=== PATIENT | male | born 1955 | race Caucasian/White ===

== ENCOUNTER → 2019-02-28 | Day surgery (SDC) | payer BC ==
[2019-02-27 09:45] LABS: BASOPHILS % 0.3 % (0.0-1.0); EOSINOPHILS # (AUTO) 0.1 (0.0-0.4); EOSINOPHILS % 0.5 % (0.0-6.0); HEMATOCRIT 40.1 % (38.2-49.6); HEMOGLOBIN 13.5 g/dL (14.0-18.0); LYMPHOCYTES # (AUTO) 0.9 (1.0-3.2); LYMPHOCYTES % 9.4 % (18.0-39.1); MEAN CORPUSCULAR HEMOGLOBIN 30.3 pg (28-32); MEAN CORPUSCULAR HGB CONC 33.7 g/dL (31-35); MEAN CORPUSCULAR VOLUME 90.1 fL (81-99); MONOCYTES # (AUTO) 1.1 (0.2-0.8); MONOCYTES % 11.3 % (4.4-11.3); NEUTROPHILS # (AUTO) 7.5 (2.1-6.9); NEUTROPHILS % 75.5 % (38.7-80.0); PLATELET COUNT 112 x10e3/uL (140-360); RED BLOOD COUNT 4.45 x10e6/uL (4.3-5.7); RED CELL DISTRIBUTION WIDTH 16.3 % (11.7-14.4)
[2019-02-27 10:00] LABS: BAND NEUTROPHILS % (MANUAL) 11 %; LYMPHOCYTES % (MANUAL) 15 % (19-48); MONOCYTES % (MANUAL) 9 % (3.4-9.0); NEUTROPHILS % (MANUAL) 65 % (40-74)
[2019-02-27 10:01] LABS: ANION GAP 13.3 mmol/L (8-16); BLOOD UREA NITROGEN 16 mg/dL (7-26); BUN/CREATININE RATIO 19 (6-25); CALCIUM 9.2 mg/dL (8.4-10.2); CARBON DIOXIDE 26 mmol/L (22-29); CHLORIDE 101 mmol/L (98-107); CREATININE, SERUM 0.85 mg/dL (0.72-1.25); EST GLOMERULAR FILTRATION RATE > 60 ML/MIN (60-); GLUCOSE 86 mg/dL (74-118); PLATELET ESTIMATE SLIGHTLY DECREASED; PLATELET MORPHOLOGY COMMENT NORMAL; POTASSIUM 4.3 mmol/L (3.5-5.1); RBC MORPHOLOGY COMMENT NORMAL; SODIUM 136 mmol/L (136-145)
[2019-02-27 10:22] LABS: INR 0.92; PROTHROMBIN TIME 12.8 seconds (11.9-14.5)
[2019-02-27 10:23] LABS: PARTIAL THROMBOPLASTIN TIME 35.2 seconds (23.8-35.5)
[~2019-02-28] MED LIST: ALENDRONATE SOD70 MG PO; BUPIVACAINE 0.25% 30ML SDV INJ ONE; CALCIUM PO; CREON DR 24,001 EACH PO; DECARA25000 UNIT PO; DRONABINOL2.5 MG PO; FENTANYL CITRATE/PF 100MCG/2 ML INJ ONE; HYDROCODON-ACE1 EAC9 PO; IOPAMIDOL 200 MG/ML 20 ML VIAL IT ONE; LEVOTHYROXINE50 MCG PO; LEXAPRO10 MG PO; LIDOCAINE HCL 1% 30ML-PF VIAL ONE; MIDAZOLAM HCL 2 MG/2 ML VIAL ONE; NAC600 MG PO; OMEPRAZOLE40 MG PO; PREDNISONE5 MG PO; PROPOFOL IV EMULSION 10 MG/ML 20 ML VIAL ONE; ROPINIROLE HCL1 MG PO; STRONTIUM PO; [UNRECOGNIZED DRUG - OTHER] SC
--- OUTSIDE RECORDS SUMMARY | 2019-02-28 05:17 | XMS REPORT | Clinical Summary ---
Author Author [facility] Organization [facility] Address Unknown Phone Unavailable Care Team Providers Care Medical Editor Name Role Phone Yamilet Valera MD PCP Allergies Comments Active Allergy Reactions Severity Noted Date Penicillins Rash Low 03/05/2018 Medications End Date Status Medication Sig Dispensed Refills Start Date Active pregabalin (LYRICA) 100 Take 100 mg 0 MG capsule by mouth 2 (two) times a day. Active levothyroxine (SYNTHROID, Take 1 mcg by 0 LEVOXYL) 100 mcg tablet mouth every morning. Active alendronate (FOSAMAX) 70 Take 70 mg by 0 MG tablet mouth every 7 days. NOTE: ON WEDNESDAYS. Take in the morning with a full glass of water on an empty stomach, do NOT take anything else by mouth or lie down for the next 30 min. Active UNABLE TO FIND Take 1 0 capsule by mouth daily. STRONTIUM CITRATE 340 MG CAPSULE (FOR OSTEOPOROSIS) Active omeprazole (PriLOSEC) 40 Take 40 mg by 0 MG capsule mouth daily. Active cholecalciferol, vitamin Take 50,000 0 D3, (DECARA) 50,000 unit Units by capsule mouth every 30 (thirty) days. Every of the month Active FERROUS GLUCONATE ORAL Take 27 mg by 0 mouth every evening. Active rOPINIRole (REQUIP) 1 MG Take 1 mg by 0 tablet mouth nightly. Active albuterol (ACCUNEB) 2.5 Take 2.5 mg 0 mg /3 mL (0.083 %) by nebulizer solution nebulization every 6 (six) hours as needed for wheezing. Active pancrelipase, Take 12,000 0 emmnsz-eyzzyrrm-dtilhqi, units of (CREON) 6,000-19,000 lipase by -30,000 unit mouth 3 capsule,delayed (three) times release(DR/EC) capsule a day with meals. 07/19/2018 Discontinued HYDROcodone-acetaminophen Take 1 tablet 0 (NORCO) 10-325 mg per by mouth 2 tablet (two) times a day. 07/11/2018 Discontinued diazePAM (VALIUM) 10 MG Take 10 mg by 0 tablet mouth nightly. 07/11/2018 Discontinued carbidopa-levodopa Take 1 tablet 0 (SINEMET) 10-100 mg per by mouth tablet daily. 03/05/2018 Discontinued cholecalciferol, vitamin Take 50,000 0 D3, (VITAMIN D3) 1,000 Units by unit tablet mouth every 30 (thirty) days. 05/11/2018 Discontinued omeprazole (PriLOSEC) 40 Take 40 mg by 0 MG capsule mouth every morning. 07/11/2018 Discontinued methocarbamol (ROBAXIN) Take 750 mg 0 750 MG tablet by mouth nightly. 03/15/2018 Discontinued predniSONE (DELTASONE) 1 Take 8 mg by 0 mg tablet mouth every morning. 03/15/2018 Discontinued cycloSPORINE modified Take 75 mg by 0 (NEORAL) 25 MG capsule mouth every morning. 03/15/2018 Discontinued cycloSPORINE modified Take 50 mg by 0 (NEORAL) 25 MG capsule mouth nightly. 05/03/2018 Discontinued acetylcysteine 500 mg Take 500 mg 0 capsule by mouth daily. 03/05/2018 Discontinued calcium carbonate-vitamin Take 1 tablet 0 D3 500 mg-200 unit per by mouth 2 tablet (two) times a day with meals. 07/16/2018 Discontinued Ca/D3/mag Take 1 tablet 0 ox/zinc/gyroscopic engineering technician/jami/bor by mouth (CALCIUM 600-D3 PLUS daily. ORAL) 03/31/2018 predniSONE (DELTASONE) 10 Take 1 tablet 15 tablet 0 03/16/201 mg tablet (10 mg total) 8 by mouth daily for 15 days. 07/11/2018 Discontinued sucralfate (CARAFATE) 1 Take 1 g by 0 gram tablet mouth 4 (four) times a day. 07/19/2018 Discontinued calcium carbonate-vitamin Take by mouth 0 D3 600 mg(1,500mg) -800 every unit tablet evening. 07/11/2018 Discontinued escitalopram (LEXAPRO) 10 Take 10 mg by 0 MG tablet mouth daily. 07/11/2018 Discontinued cholecalciferol, vitamin Take 50,000 0 D3, (DECARA) 50,000 unit Units by capsule mouth daily. 08/11/2018 Discontinued predniSONE (DELTASONE) 10 Take 4 mg by 0 mg tablet mouth daily. 08/20/2018 Discontinued acetylcysteine Take 600 mg 0 (H-MJQEES-F-CYSTEINE by mouth [facility]) every evening. 05/25/2018 dicyclomine (BENTYL) 10 Take 1 56 capsule 0 MG capsule capsule (10 8 mg total) by mouth 4 (four) times a day before meals and nightly for 14 days. 05/18/2018 lactulose 20 gram/30 mL Take 30 mL 1 Bottle 0 solution (20 g total) 8 by mouth 3 (three) times a day as needed (Constipation ) for up to 7 days. 06/10/2018 pancrelipase, Take 2 180 capsule 0 cfqcuw-ibgpcvmb-csxmrvt, capsules by 8 (PANCREAZE) mouth 3 4,200-14,200-24,600 unit (three) times DR capsule a day with meals for 30 days. 06/10/2018 pantoprazole (PROTONIX) Take 1 tablet 30 tablet 0 40 MG EC tablet (40 mg total) 8 by mouth daily for 30 days. 06/10/2018 predniSONE (DELTASONE) 1 Take 8 240 tablet 0 mg tablet tablets (8 mg 8 total) by mouth daily for 30 days. 08/14/2018 enoxaparin (LOVENOX) 80 Inject 0.8 mL 14 Syringe 1 mg/0.8 mL syringe (80 mg total) 8 under the skin every 12 (twelve) hours for 30 days. 08/14/2018 pancrelipase, Take 1 90 capsule 0 jxqayx-fbcdigks-ohilgpj, capsule by 8 (CREON) 6,000-19,000 mouth 3 -30,000 unit (three) times capsule,delayed a day with release(DR/EC) capsule meals for 30 days. 08/14/2018 polyethylene glycol Take 17 g by 20 packet 0 (MIRALAX) 17 gram packet mouth daily 8 as needed for constipation for up to 30 days. 08/11/2018 Discontinued traMADol (ULTRAM) 50 mg Take 1 tablet 10 tablet 0 tablet (50 mg total) 8 by mouth every 6 (six) hours as needed for moderate pain for up to 10 doses. 08/20/2018 Discontinued calcium citrate-vitamin Take 1 tablet 0 D3 (CITRACAL+D) 315-200 by mouth mg-unit per tablet every evening. 08/17/2018 ondansetron ODT Take 1 tablet 21 tablet 0 (ZOFRAN-ODT) 4 MG (4 mg total) 9 disintegrating tablet by mouth every 8 (eight) hours as needed for nausea or vomiting for up to 7 days. 08/20/2018 Discontinued potassium chloride Take 1 30 capsule 0 (MICRO-K) 10 MEQ CR capsule (10 9 capsule mEq total) by mouth daily. 08/20/2018 Discontinued levoFLOXacin (LEVAQUIN) Take 1 tablet 10 tablet 0 500 MG tablet (500 mg 9 total) by mouth daily for 10 days. 08/11/2018 Discontinued furosemide (LASIX) 40 mg Take 1 tablet 60 tablet 0 tablet (40 mg total) 9 by mouth daily. 08/20/2018 Discontinued furosemide (LASIX) 40 mg Take 1 tablet 30 tablet 0 tablet (40 mg total) 9 by mouth daily as needed (As needed for leg swelling /shortness of breath /weight gain). 08/28/2018 Discontinued rivaroxaban (XARELTO) 20 Take 20 mg by 0 mg tablet mouth daily. 08/28/2018 Discontinued acetylcysteine (NAC) 600 Take 600 mg 0 mg capsule by mouth once. 09/28/2018 lisinopril Take 1 tablet 30 tablet 2 (PRINIVIL,ZESTRIL) 5 mg (5 mg total) 9 tablet by mouth daily for 30 days. 09/28/2018 predniSONE (DELTASONE) 20 Take 1 tablet 30 tablet 0 mg tablet (20 mg total) 9 by mouth daily for 30 days. Active Problems Problem Noted Date Melena 08/20/2018 Pancreatitis 07/20/2018 Acute pancreatitis without infection or necrosis 07/19/2018 Overview: Added automatically from request for surgery [id number] Superior mesenteric vein thrombosis 07/10/2018 Pain of upper abdomen 05/03/2018 Acute pancreatitis 03/05/2018 Encounters Care Team Description Date Type Specialty Fern Velázquez MD Cyst and pseudocyst of pancreas 01/22/2019 Hospital Radiology Encounter Vinh King, HOUSE FURNISHINGS SUPERVISOR 08/23/2018 Anesthesia Gastroenterology Event Fern Velázquez MD COLONOSCOPY with polypectomy 08/23/2018 Surgery Gastroenterology Pranav Maldonado MD ESOPHAGOGASTRODUODENOSCOPY (EGD) with biopsies 08/22/2018 Surgery Gastroenterology Vanessa Beltran, HOUSE FURNISHINGS SUPERVISOR 08/22/2018 Anesthesia Gastroenterology Event Sean Poe MD Patel, Bhagwat Purushottam, MD Melena (Primary Dx); Gastrointestinal hemorrhage, unspecified gastrointestinal hemorrhage type; HX: anticoagulation; Superior mesenteric vein thrombosis 08/20/2018 [facility] General Internal Medicine - Encounter 08/28/2018 Tavares Baker MD 08/02/2018 Anesthesia Gastroenterology Event Tereso Lawson MD US UPPER GI TRACT, ENDOSCOPIC 08/02/2018 Surgery Gastroenterology N/A 07/31/2018 Intake Access Tereso Lawson MD ERCP WITH FLUORO 07/26/2018 Surgery Gastroenterology Mikayla Solomon MD 07/26/2018 Anesthesia Gastroenterology Event Curly Marrufo DO Zhao, Xun, MD Patel, Bhagwat Purushottam, MD Acute pancreatitis, unspecified complication status, unspecified pancreatitis type (Primary Dx); Epigastric abdominal pain; RUQ pain; Acute pancreatitis without infection or necrosis, unspecified pancreatitis type 07/19/2018 [facility] General Internal Medicine - Encounter 08/11/2018 Carin Morton MD Patel, Bhagwat Purushottam, MD Superior mesenteric vein thrombosis (Primary Dx); Portal vein thrombosis 07/10/2018 [facility] General Internal Medicine - Encounter 07/16/2018 Yamilet Valera MD Epigastric abdominal pain; H/O acute pancreatitis; Nausea & vomiting 07/10/2018 Hospital Radiology Encounter Fern Velázquez MD Cyst and pseudocyst of pancreas (Primary Dx) 06/05/2018 Transcribe Access Orders Zeenat Lakhani MD Patel, Bhagwat Purushottam, MD Pain of upper abdomen (Primary Dx); Gastritis without bleeding, unspecified chronicity, unspecified gastritis type 05/02/2018 [facility] General Internal Medicine - Encounter 05/11/2018 Yamilet Valera MD Epigastric abdominal pain (Primary Dx); RUQ pain 04/26/2018 Transcribe Access Orders Justice Reynaga MD Patel, Bhagwat Purushottam, MD Acute pancreatitis, unspecified complication status, unspecified pancreatitis type (Primary Dx); Chest pain of uncertain etiology; Dehydration; Unable to eat; Acute hyperkalemia 03/05/2018 [facility] General Internal Medicine - Encounter 03/15/2018 after 02/27/2018 Immunizations Name Dates Previously Given Next Due FLUCELVAX QUAD PF (0.5mL 08/10/2018 syringe) Social History Date Tobacco Use Types Packs/Day Years Used Never Smoker Smokeless Tobacco: Never Used Alcohol Use Drinks/Week oz/Week Comments No Sex Assigned at Date Recorded Not on file Industry Job Start Date Occupation Not on file Not on file Not on file Travel End Travel History Travel Start No recent travel history available. Last Filed Vital Signs Time Taken Vital Sign Reading 08/28/2018 12:29 PM DIRECTOR OF FIELD COORDINATION Blood Pressure 105/59 08/28/2018 12:29 PM DIRECTOR OF FIELD COORDINATION Pulse 63 08/28/2018 12:29 PM DIRECTOR OF FIELD COORDINATION Temperature 35.8 C (96.5 F) 08/28/2018 12:29 PM DIRECTOR OF FIELD COORDINATION Respiratory Rate 16 08/28/2018 12:29 PM DIRECTOR OF FIELD COORDINATION Oxygen Saturation 95% - Inhaled Oxygen - Concentration 08/28/2018 7:36 AM DIRECTOR OF FIELD COORDINATION Weight 78.5 kg (173 lb) 08/20/2018 5:00 PM DIRECTOR OF FIELD COORDINATION Height 167.6 cm (5' 6") 08/20/2018 5:00 PM DIRECTOR OF FIELD COORDINATION Body Mass Index 27.92 Plan of Treatment Health Maintenance Due Date Last Done Comments COLONOSCOPY SCREENING 2006 SHINGLES VACCINES (#1) 2006 INFLUENZA VACCINE 02/21/2019 08/10/2018 Implants Device Identifier Shelf Expiration Date Model / Serial / Lot Implanted Type Area Manufactur er [id number] / / Stent Advanix Pncreatic 7fr 7cm Surgical N/A: N/A [employer] - [id number] Stents [employer] Implanted: 07/26/2018 (Quantity not MAXIMILIANO on file) Procedures Comments Procedure Name Priority Date/Time Associated Diagnosis CT ABDOMEN W WO CONTRAST Routine 01/22/2019 Cyst and pseudocyst of 10:24 AM CDT pancreas ESTIMATED GFR Routine 01/22/2019 9:18 AM CDT CREATININE, WHOLE BLOOD Routine 01/22/2019 9:18 AM CDT ESTIMATED GFR Routine 08/28/2018 4:50 AM DIRECTOR OF FIELD COORDINATION COMPREHENSIVE METABOLIC Routine 08/28/2018 PANEL 4:50 AM DIRECTOR OF FIELD COORDINATION HC COMPLETE BLD COUNT Routine 08/28/2018 W/AUTO DIFF 4:50 AM DIRECTOR OF FIELD COORDINATION CREATININE LEVEL, URINE, Routine 08/27/2018 RANDOM 3:15 PM DIRECTOR OF FIELD COORDINATION PROTEIN, URINE, RANDOM Routine 08/27/2018 3:15 PM DIRECTOR OF FIELD COORDINATION ESTIMATED GFR Routine 08/26/2018 5:08 AM DIRECTOR OF FIELD COORDINATION BASIC METABOLIC PANEL Routine 08/26/2018 5:08 AM DIRECTOR OF FIELD COORDINATION HC COMPLETE BLD COUNT Routine 08/26/2018 W/AUTO DIFF 5:08 AM DIRECTOR OF FIELD COORDINATION ESTIMATED GFR Routine 08/25/2018 6:22 AM DIRECTOR OF FIELD COORDINATION BASIC METABOLIC PANEL Routine 08/25/2018 6:22 AM DIRECTOR OF FIELD COORDINATION HC COMPLETE BLD COUNT Routine 08/25/2018 W/AUTO DIFF 6:22 AM DIRECTOR OF FIELD COORDINATION ESTIMATED GFR Routine 08/24/2018 5:36 AM DIRECTOR OF FIELD COORDINATION BASIC METABOLIC PANEL Routine 08/24/2018 5:36 AM DIRECTOR OF FIELD COORDINATION HC COMPLETE BLD COUNT Routine 08/24/2018 W/AUTO DIFF 5:36 AM DIRECTOR OF FIELD COORDINATION CREATININE LEVEL, URINE, Routine 08/23/2018 RANDOM 3:27 PM DIRECTOR OF FIELD COORDINATION PROTEIN, URINE, RANDOM Routine 08/23/2018 3:27 PM DIRECTOR OF FIELD COORDINATION SURGICAL PATHOLOGY Routine 08/23/2018 REQUEST 11:13 AM DIRECTOR OF FIELD COORDINATION COLONOSCOPY 08/23/2018 Melena 8:48 AM DIRECTOR OF FIELD COORDINATION Special Needs colonoscop y on 08/23/[address] ABDOMEN WWO CONTRAST Routine 08/22/2018 PELVIS W CONTRAST 5:56 PM DIRECTOR OF FIELD COORDINATION CREATININE LEVEL, URINE, Routine 08/22/2018 RANDOM 4:37 PM DIRECTOR OF FIELD COORDINATION PROTEIN, URINE, RANDOM Routine 08/22/2018 4:37 PM DIRECTOR OF FIELD COORDINATION SURGICAL PATHOLOGY Routine 08/22/2018 REQUEST 1:49 PM DIRECTOR OF FIELD COORDINATION ESOPHAGOGASTRODUODENOSCOP 08/22/2018 Melena Y (EGD) 12:30 PM DIRECTOR OF FIELD COORDINATION Special Needs egd on 08/22/18 at 1230 ECG PRE/POST OP Routine 08/22/2018 5:50 AM DIRECTOR OF FIELD COORDINATION ESTIMATED GFR Routine 08/22/2018 4:47 AM DIRECTOR OF FIELD COORDINATION PROTHROMBIN TIME WITH INR Routine 08/22/2018 4:47 AM DIRECTOR OF FIELD COORDINATION COMPREHENSIVE METABOLIC Routine 08/22/2018 PANEL 4:47 AM DIRECTOR OF FIELD COORDINATION HC COMPLETE BLD COUNT Routine 08/22/2018 W/AUTO DIFF 4:47 AM DIRECTOR OF FIELD COORDINATION LIPASE LEVEL Routine 08/22/2018 4:47 AM DIRECTOR OF FIELD COORDINATION HEMOGLOBIN & HEMATOCRIT Timed 08/21/2018 11:55 PM DIRECTOR OF FIELD COORDINATION HEMOGLOBIN & HEMATOCRIT Timed 08/21/2018 7:10 PM DIRECTOR OF FIELD COORDINATION CREATININE LEVEL, URINE, Routine 08/21/2018 RANDOM 7:10 PM DIRECTOR OF FIELD COORDINATION PROTEIN, URINE, RANDOM Routine 08/21/2018 7:10 PM DIRECTOR OF FIELD COORDINATION CLOSTRIDIUM DIFFICILE Routine 08/21/2018 TOXIN 7:10 PM DIRECTOR OF FIELD COORDINATION LIPASE LEVEL Routine 08/21/2018 12:22 PM DIRECTOR OF FIELD COORDINATION HC COMPLETE BLD COUNT Routine 08/21/2018 W/AUTO DIFF 12:22 PM DIRECTOR OF FIELD COORDINATION TRANSFUSE RED BLOOD CELLS Routine 08/21/2018 8:49 AM DIRECTOR OF FIELD COORDINATION ESTIMATED GFR Routine 08/21/2018 4:15 AM DIRECTOR OF FIELD COORDINATION PROTHROMBIN TIME WITH INR Routine 08/21/2018 4:15 AM DIRECTOR OF FIELD COORDINATION COMPREHENSIVE METABOLIC Routine 08/21/2018 PANEL 4:15 AM DIRECTOR OF FIELD COORDINATION TRANSFUSE RED BLOOD CELLS Routine 08/21/2018 3:39 AM DIRECTOR OF FIELD COORDINATION HEMOGLOBIN & HEMATOCRIT Timed 08/20/2018 10:00 PM DIRECTOR OF FIELD COORDINATION LACTIC ACID LEVEL, SEPSIS Timed 08/20/2018 - NOW AND REPEAT 2X EVERY 8:00 PM DIRECTOR OF FIELD COORDINATION 3 HOURS URINALYSIS SCREEN AND Routine 08/20/2018 MICROSCOPY, WITH REFLEX 5:29 PM DIRECTOR OF FIELD COORDINATION TO CULTURE URINE CULTURE Routine 08/20/2018 5:29 PM DIRECTOR OF FIELD COORDINATION HEMOGLOBIN & HEMATOCRIT Timed 08/20/2018 4:30 PM DIRECTOR OF FIELD COORDINATION LACTIC ACID LEVEL, SEPSIS Timed 08/20/2018 - NOW AND REPEAT 2X EVERY 4:30 PM DIRECTOR OF FIELD COORDINATION 3 HOURS DC CRITICAL CARE, E/M Routine 08/20/2018 30-74 MINUTES 1:52 PM DIRECTOR OF FIELD COORDINATION PREPARE RBC Routine 08/20/2018 1:34 PM DIRECTOR OF FIELD COORDINATION ESTIMATED GFR STAT 08/20/2018 1:34 PM DIRECTOR OF FIELD COORDINATION LIPASE LEVEL STAT 08/20/2018 1:34 PM DIRECTOR OF FIELD COORDINATION LACTIC ACID LEVEL, SEPSIS STAT 08/20/2018 - NOW AND REPEAT 2X EVERY 1:34 PM DIRECTOR OF FIELD COORDINATION 3 HOURS COMPREHENSIVE METABOLIC STAT 08/20/2018 PANEL 1:34 PM DIRECTOR OF FIELD COORDINATION TYPE AND SCREEN Routine 08/20/2018 1:34 PM DIRECTOR OF FIELD COORDINATION PARTIAL THROMBOPLASTIN STAT 08/20/2018 TIME (PTT) 1:34 PM DIRECTOR OF FIELD COORDINATION PROTHROMBIN TIME WITH INR STAT 08/20/2018 1:34 PM DIRECTOR OF FIELD COORDINATION HC COMPLETE BLD COUNT STAT 08/20/2018 W/AUTO DIFF 1:34 PM DIRECTOR OF FIELD COORDINATION MANUAL DIFFERENTIAL Routine 08/11/2018 4:50 AM DIRECTOR OF FIELD COORDINATION ESTIMATED GFR Routine 08/11/2018 4:50 AM DIRECTOR OF FIELD COORDINATION BILIRUBIN DIRECT Routine 08/11/2018 4:50 AM DIRECTOR OF FIELD COORDINATION COMPREHENSIVE METABOLIC Routine 08/11/2018 PANEL 4:50 AM DIRECTOR OF FIELD COORDINATION CBC WITH PLATELET AND Routine 08/11/2018 DIFFERENTIAL 4:50 AM DIRECTOR OF FIELD COORDINATION HEPATIC FUNCTION PANEL STAT 08/10/2018 5:49 PM DIRECTOR OF FIELD COORDINATION MANUAL DIFFERENTIAL Routine 08/10/2018 5:10 AM DIRECTOR OF FIELD COORDINATION ESTIMATED GFR Routine 08/10/2018 5:10 AM DIRECTOR OF FIELD COORDINATION HEPATIC FUNCTION PANEL Routine 08/10/2018 5:10 AM DIRECTOR OF FIELD COORDINATION BASIC METABOLIC PANEL Routine 08/10/2018 5:10 AM DIRECTOR OF FIELD COORDINATION CBC WITH PLATELET AND Routine 08/10/2018 DIFFERENTIAL 5:10 AM DIRECTOR OF FIELD COORDINATION MANUAL DIFFERENTIAL Routine 08/09/2018 4:51 AM DIRECTOR OF FIELD COORDINATION ESTIMATED GFR Routine 08/09/2018 4:51 AM DIRECTOR OF FIELD COORDINATION COMPREHENSIVE METABOLIC Routine 08/09/2018 PANEL 4:51 AM DIRECTOR OF FIELD COORDINATION CBC WITH PLATELET AND Routine 08/09/2018 DIFFERENTIAL 4:51 AM DIRECTOR OF FIELD COORDINATION URINALYSIS, AUTOMATED Routine 08/07/2018 WITH MICROSCOPY 3:32 PM DIRECTOR OF FIELD COORDINATION POC GLUCOSE Routine 08/06/2018 4:16 PM DIRECTOR OF FIELD COORDINATION POC GLUCOSE Routine 08/06/2018 12:30 PM DIRECTOR OF FIELD COORDINATION POC GLUCOSE Routine 08/06/2018 8:21 AM DIRECTOR OF FIELD COORDINATION POC GLUCOSE Routine 08/06/2018 4:54 AM DIRECTOR OF FIELD COORDINATION ESTIMATED GFR Routine 08/06/2018 3:30 AM DIRECTOR OF FIELD COORDINATION PHOSPHORUS LEVEL Routine 08/06/2018 3:30 AM DIRECTOR OF FIELD COORDINATION MAGNESIUM LEVEL Routine 08/06/2018 3:30 AM DIRECTOR OF FIELD COORDINATION IONIZED CALCIUM Routine 08/06/2018 3:30 AM DIRECTOR OF FIELD COORDINATION HC COMPLETE BLD COUNT Routine 08/06/2018 W/AUTO DIFF 3:30 AM DIRECTOR OF FIELD COORDINATION COMPREHENSIVE METABOLIC Routine 08/06/2018 PANEL 3:30 AM DIRECTOR OF FIELD COORDINATION CORTISOL LEVEL, AM Routine 08/06/2018 3:30 AM DIRECTOR OF FIELD COORDINATION BLOOD CULTURE, AEROBIC & Routine 08/06/2018 ANAEROBIC 3:30 AM DIRECTOR OF FIELD COORDINATION BLOOD CULTURE, AEROBIC & Routine 08/06/2018 ANAEROBIC 3:30 AM DIRECTOR OF FIELD COORDINATION POC GLUCOSE Routine 08/06/2018 12:54 AM DIRECTOR OF FIELD COORDINATION POC GLUCOSE Routine 08/05/2018 8:55 PM DIRECTOR OF FIELD COORDINATION LACTIC ACID LEVEL STAT 08/05/2018 8:02 PM DIRECTOR OF FIELD COORDINATION POC GLUCOSE Routine 08/05/2018 5:51 PM DIRECTOR OF FIELD COORDINATION ECG 12-LEAD STAT 08/05/2018 5:04 PM DIRECTOR OF FIELD COORDINATION TROPONIN STAT 08/05/2018 4:05 PM DIRECTOR OF FIELD COORDINATION ESTIMATED GFR STAT 08/05/2018 4:05 PM DIRECTOR OF FIELD COORDINATION IONIZED CALCIUM STAT 08/05/2018 4:05 PM DIRECTOR OF FIELD COORDINATION MAGNESIUM LEVEL STAT 08/05/2018 4:05 PM DIRECTOR OF FIELD COORDINATION BASIC METABOLIC PANEL STAT 08/05/2018 4:05 PM DIRECTOR OF FIELD COORDINATION POC GLUCOSE Routine 08/05/2018 1:52 PM DIRECTOR OF FIELD COORDINATION POC GLUCOSE Routine 08/05/2018 9:13 AM DIRECTOR OF FIELD COORDINATION MANUAL DIFFERENTIAL Routine 08/05/2018 3:30 AM DIRECTOR OF FIELD COORDINATION ESTIMATED GFR Routine 08/05/2018 3:30 AM DIRECTOR OF FIELD COORDINATION CBC WITH PLATELET AND Routine 08/05/2018 DIFFERENTIAL 3:30 AM DIRECTOR OF FIELD COORDINATION MAGNESIUM LEVEL Routine 08/05/2018 3:30 AM DIRECTOR OF FIELD COORDINATION IONIZED CALCIUM Routine 08/05/2018 3:30 AM DIRECTOR OF FIELD COORDINATION BASIC METABOLIC PANEL Routine 08/05/2018 3:30 AM DIRECTOR OF FIELD COORDINATION LACTIC ACID LEVEL Routine 08/04/2018 10:47 PM DIRECTOR OF FIELD COORDINATION CT ABDOMEN W WO CONTRAST Routine 08/04/2018 6:56 PM DIRECTOR OF FIELD COORDINATION ESTIMATED GFR Routine 08/04/2018 3:55 PM DIRECTOR OF FIELD COORDINATION COMPREHENSIVE METABOLIC Routine 08/04/2018 PANEL 3:55 PM DIRECTOR OF FIELD COORDINATION IONIZED CALCIUM Routine 08/04/2018 3:55 PM DIRECTOR OF FIELD COORDINATION PHOSPHORUS LEVEL Routine 08/04/2018 3:55 PM DIRECTOR OF FIELD COORDINATION MAGNESIUM LEVEL Routine 08/04/2018 3:55 PM DIRECTOR OF FIELD COORDINATION LACTIC ACID LEVEL Routine 08/04/2018 3:55 PM DIRECTOR OF FIELD COORDINATION HC COMPLETE BLD COUNT Routine 08/04/2018 W/AUTO DIFF 3:55 PM DIRECTOR OF FIELD COORDINATION BLOOD CULTURE, AEROBIC & Routine 08/04/2018 ANAEROBIC 3:55 PM DIRECTOR OF FIELD COORDINATION XR CHEST 1 VW PORTABLE Routine 08/04/2018 3:53 PM DIRECTOR OF FIELD COORDINATION ECG 12-LEAD Routine 08/04/2018 3:40 PM DIRECTOR OF FIELD COORDINATION POC GLUCOSE Routine 08/04/2018 3:31 PM DIRECTOR OF FIELD COORDINATION ESTIMATED GFR Routine 08/04/2018 4:38 AM DIRECTOR OF FIELD COORDINATION BASIC METABOLIC PANEL Routine 08/04/2018 4:38 AM DIRECTOR OF FIELD COORDINATION HC COMPLETE BLD COUNT Routine 08/04/2018 W/AUTO DIFF 4:38 AM DIRECTOR OF FIELD COORDINATION ESTIMATED GFR Routine 08/03/2018 3:55 AM DIRECTOR OF FIELD COORDINATION BASIC METABOLIC PANEL Routine 08/03/2018 3:55 AM DIRECTOR OF FIELD COORDINATION HC COMPLETE BLD COUNT Routine 08/03/2018 W/AUTO DIFF 3:55 AM DIRECTOR OF FIELD COORDINATION RESPIRATORY PATHOGEN Routine 08/02/2018 PANEL 5:50 PM DIRECTOR OF FIELD COORDINATION US UPPER GI TRACT, 08/02/2018 Acute pancreatitis ENDOSCOPIC 2:25 PM DIRECTOR OF FIELD COORDINATION without infection or necrosis, unspecified pancreatitis type ESTIMATED GFR Routine 08/02/2018 6:30 AM DIRECTOR OF FIELD COORDINATION PROTHROMBIN TIME WITH INR Routine 08/02/2018 6:30 AM DIRECTOR OF FIELD COORDINATION COMPREHENSIVE METABOLIC Routine 08/02/2018 PANEL 6:30 AM DIRECTOR OF FIELD COORDINATION HC COMPLETE BLD COUNT Routine 08/02/2018 W/AUTO DIFF 6:30 AM DIRECTOR OF FIELD COORDINATION ESTIMATED GFR Routine 08/01/2018 6:05 AM DIRECTOR OF FIELD COORDINATION MAGNESIUM LEVEL Routine 08/01/2018 6:05 AM DIRECTOR OF FIELD COORDINATION PHOSPHORUS LEVEL Routine 08/01/2018 6:05 AM DIRECTOR OF FIELD COORDINATION COMPREHENSIVE METABOLIC Routine 08/01/2018 PANEL 6:05 AM DIRECTOR OF FIELD COORDINATION XR CHEST 2 VW Routine 07/31/2018 8:13 PM DIRECTOR OF FIELD COORDINATION HC COMPLETE BLD COUNT Routine 07/31/2018 W/AUTO DIFF 6:50 PM DIRECTOR OF FIELD COORDINATION ESTIMATED GFR Routine 07/31/2018 3:45 AM DIRECTOR OF FIELD COORDINATION HC COMPLETE BLD COUNT Routine 07/31/2018 W/AUTO DIFF 3:45 AM DIRECTOR OF FIELD COORDINATION MAGNESIUM LEVEL Routine 07/31/2018 3:45 AM DIRECTOR OF FIELD COORDINATION PHOSPHORUS LEVEL Routine 07/31/2018 3:45 AM DIRECTOR OF FIELD COORDINATION COMPREHENSIVE METABOLIC Routine 07/31/2018 PANEL 3:45 AM DIRECTOR OF FIELD COORDINATION ESTIMATED GFR Routine 07/29/2018 4:31 AM DIRECTOR OF FIELD COORDINATION PHOSPHORUS LEVEL Routine 07/29/2018 4:31 AM DIRECTOR OF FIELD COORDINATION MAGNESIUM LEVEL Routine 07/29/2018 4:31 AM DIRECTOR OF FIELD COORDINATION BASIC METABOLIC PANEL Routine 07/29/2018 4:31 AM DIRECTOR OF FIELD COORDINATION ESTIMATED GFR Routine 07/28/2018 4:15 AM DIRECTOR OF FIELD COORDINATION COMPREHENSIVE METABOLIC Routine 07/28/2018 PANEL 4:15 AM DIRECTOR OF FIELD COORDINATION HC COMPLETE BLD COUNT Routine 07/28/2018 W/AUTO DIFF 4:15 AM DIRECTOR OF FIELD COORDINATION ESTIMATED GFR Routine 07/27/2018 4:50 AM DIRECTOR OF FIELD COORDINATION COMPREHENSIVE METABOLIC Routine 07/27/2018 PANEL 4:50 AM DIRECTOR OF FIELD COORDINATION HC COMPLETE BLD COUNT Routine 07/27/2018 W/AUTO DIFF 4:50 AM DIRECTOR OF FIELD COORDINATION TRIGLYCERIDES Routine 07/27/2018 4:50 AM DIRECTOR OF FIELD COORDINATION PREALBUMIN LEVEL Routine 07/27/2018 4:50 AM DIRECTOR OF FIELD COORDINATION OR FL > 1 HOUR Routine 07/26/2018 10:49 AM DIRECTOR OF FIELD COORDINATION ERCP WITH FLUORO 07/26/2018 Acute pancreatitis 10:00 AM DIRECTOR OF FIELD COORDINATION without infection or necrosis, unspecified pancreatitis type POC GLUCOSE Routine 07/26/2018 9:19 AM DIRECTOR OF FIELD COORDINATION XR CHEST 2 VW Routine 07/26/2018 8:28 AM DIRECTOR OF FIELD COORDINATION PROTHROMBIN TIME WITH INR Routine 07/26/2018 4:15 AM DIRECTOR OF FIELD COORDINATION ESTIMATED GFR Routine 07/26/2018 4:15 AM DIRECTOR OF FIELD COORDINATION COMPREHENSIVE METABOLIC Routine 07/26/2018 PANEL 4:15 AM DIRECTOR OF FIELD COORDINATION HC COMPLETE BLD COUNT Routine 07/26/2018 W/AUTO DIFF 4:15 AM DIRECTOR OF FIELD COORDINATION PHOSPHORUS LEVEL Routine 07/26/2018 4:15 AM DIRECTOR OF FIELD COORDINATION MAGNESIUM LEVEL Routine 07/26/2018 4:15 AM DIRECTOR OF FIELD COORDINATION TRIGLYCERIDES Routine 07/26/2018 4:15 AM DIRECTOR OF FIELD COORDINATION PREALBUMIN LEVEL Routine 07/26/2018 4:15 AM DIRECTOR OF FIELD COORDINATION ECG 12-LEAD STAT 07/25/2018 3:14 PM DIRECTOR OF FIELD COORDINATION ESTIMATED GFR Routine 07/25/2018 7:50 AM DIRECTOR OF FIELD COORDINATION COMPREHENSIVE METABOLIC Routine 07/25/2018 PANEL 7:50 AM DIRECTOR OF FIELD COORDINATION ESTIMATED GFR Routine 07/25/2018 4:00 AM DIRECTOR OF FIELD COORDINATION BILIRUBIN DIRECT Routine 07/25/2018 4:00 AM DIRECTOR OF FIELD COORDINATION COMPREHENSIVE METABOLIC Routine 07/25/2018 PANEL 4:00 AM DIRECTOR OF FIELD COORDINATION HC COMPLETE BLD COUNT Routine 07/25/2018 W/AUTO DIFF 4:00 AM DIRECTOR OF FIELD COORDINATION ESTIMATED GFR Routine 07/24/2018 1:27 PM DIRECTOR OF FIELD COORDINATION TRIGLYCERIDES Routine 07/24/2018 1:27 PM DIRECTOR OF FIELD COORDINATION PREALBUMIN LEVEL Routine 07/24/2018 1:27 PM DIRECTOR OF FIELD COORDINATION PHOSPHORUS LEVEL Routine 07/24/2018 1:27 PM DIRECTOR OF FIELD COORDINATION COMPREHENSIVE METABOLIC Routine 07/24/2018 PANEL 1:27 PM DIRECTOR OF FIELD COORDINATION MAGNESIUM LEVEL Routine 07/24/2018 1:27 PM DIRECTOR OF FIELD COORDINATION FERRITIN LEVEL Routine 07/23/2018 4:37 PM DIRECTOR OF FIELD COORDINATION HEPARIN PF4 ANTIBODY Routine 07/23/2018 (IGG) 4:37 PM DIRECTOR OF FIELD COORDINATION US GUIDED VASCULAR ACCESS Routine 07/23/2018 10:52 AM DIRECTOR OF FIELD COORDINATION IR PICC PLACEMENT Routine 07/23/2018 10:52 AM DIRECTOR OF FIELD COORDINATION MANUAL DIFFERENTIAL Routine 07/23/2018 4:00 AM DIRECTOR OF FIELD COORDINATION HC COMPLETE BLD COUNT Routine 07/23/2018 W/AUTO DIFF 4:00 AM DIRECTOR OF FIELD COORDINATION POC GLUCOSE Routine 07/22/2018 10:58 PM DIRECTOR OF FIELD COORDINATION ESTIMATED GFR Routine 07/22/2018 6:17 AM DIRECTOR OF FIELD COORDINATION COMPREHENSIVE METABOLIC Routine 07/22/2018 PANEL 6:17 AM DIRECTOR OF FIELD COORDINATION HC COMPLETE BLD COUNT Routine 07/22/2018 W/AUTO DIFF 6:17 AM DIRECTOR OF FIELD COORDINATION CBC HEMOGRAM Routine 07/21/2018 5:09 PM DIRECTOR OF FIELD COORDINATION ESTIMATED GFR Routine 07/21/2018 5:16 AM DIRECTOR OF FIELD COORDINATION LIPASE LEVEL Routine 07/21/2018 5:16 AM DIRECTOR OF FIELD COORDINATION COMPREHENSIVE METABOLIC Routine 07/21/2018 PANEL 5:16 AM DIRECTOR OF FIELD COORDINATION HC COMPLETE BLD COUNT Routine 07/21/2018 W/AUTO DIFF 5:16 AM DIRECTOR OF FIELD COORDINATION NM HEPATOBILIARY Routine 07/20/2018 7:28 PM DIRECTOR OF FIELD COORDINATION CT ABDOMEN PELVIS W STAT 07/19/2018 CONTRAST 3:14 PM DIRECTOR OF FIELD COORDINATION URINE CULTURE STAT 07/19/2018 1:26 PM DIRECTOR OF FIELD COORDINATION ESTIMATED GFR STAT 07/19/2018 1:25 PM DIRECTOR OF FIELD COORDINATION URINALYSIS SCREEN AND STAT 07/19/2018 MICROSCOPY, WITH REFLEX 1:25 PM DIRECTOR OF FIELD COORDINATION TO CULTURE LIPASE LEVEL STAT 07/19/2018 1:25 PM DIRECTOR OF FIELD COORDINATION AMYLASE LEVEL STAT 07/19/2018 1:25 PM DIRECTOR OF FIELD COORDINATION COMPREHENSIVE METABOLIC STAT 07/19/2018 PANEL 1:25 PM DIRECTOR OF FIELD COORDINATION HC COMPLETE BLD COUNT STAT 07/19/2018 W/AUTO DIFF 1:25 PM DIRECTOR OF FIELD COORDINATION ESTIMATED GFR Routine 07/15/2018 5:00 AM DIRECTOR OF FIELD COORDINATION BASIC METABOLIC PANEL Routine 07/15/2018 5:00 AM DIRECTOR OF FIELD COORDINATION HC COMPLETE BLD COUNT Routine 07/15/2018 W/AUTO DIFF 5:00 AM DIRECTOR OF FIELD COORDINATION LIPASE LEVEL Routine 07/15/2018 5:00 AM DIRECTOR OF FIELD COORDINATION ESTIMATED GFR Routine 07/14/2018 4:45 AM DIRECTOR OF FIELD COORDINATION BASIC METABOLIC PANEL Routine 07/14/2018 4:45 AM DIRECTOR OF FIELD COORDINATION HC COMPLETE BLD COUNT Routine 07/14/2018 W/AUTO DIFF 4:45 AM DIRECTOR OF FIELD COORDINATION D-DIMER Routine 07/13/2018 11:40 AM DIRECTOR OF FIELD COORDINATION ESTIMATED GFR Routine 07/13/2018 4:45 AM DIRECTOR OF FIELD COORDINATION BASIC METABOLIC PANEL Routine 07/13/2018 4:45 AM DIRECTOR OF FIELD COORDINATION HC COMPLETE BLD COUNT Routine 07/13/2018 W/AUTO DIFF 4:45 AM DIRECTOR OF FIELD COORDINATION ANTI SMOOTH MUSCLE AB Routine 07/12/2018 TITER 3:10 AM DIRECTOR OF FIELD COORDINATION ESTIMATED GFR Routine 07/12/2018 3:10 AM DIRECTOR OF FIELD COORDINATION HEPATITIS B SURFACE AB, Routine 07/12/2018 QUANTITATIVE 3:10 AM DIRECTOR OF FIELD COORDINATION LIPASE LEVEL Routine 07/12/2018 3:10 AM DIRECTOR OF FIELD COORDINATION CERULOPLASMIN LEVEL Routine 07/12/2018 3:10 AM DIRECTOR OF FIELD COORDINATION ANTI SMOOTH MUSCLE AB Routine 07/12/2018 SCREEN 3:10 AM DIRECTOR OF FIELD COORDINATION ANTI MITOCHONDRIA SCREEN Routine 07/12/2018 3:10 AM DIRECTOR OF FIELD COORDINATION HARSHA Routine 07/12/2018 3:10 AM DIRECTOR OF FIELD COORDINATION TOTAL IRON BINDING Routine 07/12/2018 CAPACITY 3:10 AM DIRECTOR OF FIELD COORDINATION FERRITIN LEVEL Routine 07/12/2018 3:10 AM DIRECTOR OF FIELD COORDINATION HEPATITIS ACUTE PANEL Routine 07/12/2018 3:10 AM DIRECTOR OF FIELD COORDINATION ALPHA FETOPROTEIN Routine 07/12/2018 3:10 AM DIRECTOR OF FIELD COORDINATION COMPREHENSIVE METABOLIC Routine 07/12/2018 PANEL 3:10 AM DIRECTOR OF FIELD COORDINATION HC COMPLETE BLD COUNT Routine 07/12/2018 W/AUTO DIFF 3:10 AM DIRECTOR OF FIELD COORDINATION US ABDOMEN COMPLETE Routine 07/11/2018 3:45 PM DIRECTOR OF FIELD COORDINATION URINALYSIS SCREEN AND STAT 07/10/2018 MICROSCOPY, WITH REFLEX 6:50 PM DIRECTOR OF FIELD COORDINATION TO CULTURE URINE CULTURE STAT 07/10/2018 6:50 PM DIRECTOR OF FIELD COORDINATION ESTIMATED GFR STAT 07/10/2018 6:45 PM DIRECTOR OF FIELD COORDINATION PARTIAL THROMBOPLASTIN STAT 07/10/2018 TIME (PTT) 6:45 PM DIRECTOR OF FIELD COORDINATION PROTHROMBIN TIME WITH INR STAT 07/10/2018 6:45 PM DIRECTOR OF FIELD COORDINATION LIPASE LEVEL STAT 07/10/2018 6:45 PM DIRECTOR OF FIELD COORDINATION AMYLASE LEVEL STAT 07/10/2018 6:45 PM DIRECTOR OF FIELD COORDINATION COMPREHENSIVE METABOLIC STAT 07/10/2018 PANEL 6:45 PM DIRECTOR OF FIELD COORDINATION HC COMPLETE BLD COUNT STAT 07/10/2018 W/AUTO DIFF 6:45 PM DIRECTOR OF FIELD COORDINATION CT ABDOMEN W WO CONTRAST STAT 07/10/2018 Epigastric abdominal pain 2:18 PM DIRECTOR OF FIELD COORDINATION H/O acute pancreatitis Nausea & vomiting ESTIMATED GFR STAT 07/10/2018 12:50 PM DIRECTOR OF FIELD COORDINATION CREATININE, WHOLE BLOOD STAT 07/10/2018 12:50 PM DIRECTOR OF FIELD COORDINATION ESTIMATED GFR Routine 05/11/2018 4:10 AM CDT HC COMPLETE BLD COUNT Routine 05/11/2018 W/AUTO DIFF 4:10 AM CDT COMPREHENSIVE METABOLIC Routine 05/11/2018 PANEL 4:10 AM CDT CREATININE LEVEL, URINE, Routine 05/11/2018 RANDOM 4:10 AM CDT PROTEIN, URINE, RANDOM Routine 05/11/2018 4:10 AM CDT ESTIMATED GFR Routine 05/10/2018 4:53 AM CDT HC COMPLETE BLD COUNT Routine 05/10/2018 W/AUTO DIFF 4:53 AM CDT COMPREHENSIVE METABOLIC Routine 05/10/2018 PANEL 4:53 AM CDT LIPASE LEVEL Routine 05/10/2018 4:53 AM CDT AMYLASE LEVEL Routine 05/10/2018 4:53 AM CDT CREATININE LEVEL, URINE, Routine 05/09/2018 RANDOM 5:30 PM CDT PROTEIN, URINE, RANDOM Routine 05/09/2018 5:30 PM CDT ESTIMATED GFR Routine 05/09/2018 4:35 AM CDT COMPREHENSIVE METABOLIC Routine 05/09/2018 PANEL 4:35 AM CDT HC COMPLETE BLD COUNT Routine 05/09/2018 W/AUTO DIFF 4:35 AM CDT CREATININE LEVEL, URINE, Routine 05/09/2018 RANDOM 4:00 AM CDT PROTEIN, URINE, RANDOM Routine 05/09/2018 4:00 AM CDT MRI ABDOMEN W WO CONTRAST Routine 05/08/2018 10:17 PM CDT MRI PELVIS W WO CONTRAST Routine 05/08/2018 10:16 PM CDT BILIRUBIN DIRECT Routine 05/08/2018 4:30 AM CDT ESTIMATED GFR Routine 05/08/2018 4:30 AM CDT LIPASE LEVEL Routine 05/08/2018 4:30 AM CDT AMYLASE LEVEL Routine 05/08/2018 4:30 AM CDT COMPREHENSIVE METABOLIC Routine 05/08/2018 PANEL 4:30 AM CDT HC COMPLETE BLD COUNT Routine 05/08/2018 W/AUTO DIFF 4:30 AM CDT LIPASE LEVEL Routine 05/06/2018 3:00 AM CDT AMYLASE LEVEL Routine 05/06/2018 3:00 AM CDT ESTIMATED GFR Routine 05/05/2018 6:15 AM CDT LIPASE LEVEL Routine 05/05/2018 6:15 AM CDT AMYLASE LEVEL Routine 05/05/2018 6:15 AM CDT COMPREHENSIVE METABOLIC Routine 05/05/2018 PANEL 6:15 AM CDT HC COMPLETE BLD COUNT Routine 05/05/2018 W/AUTO DIFF 5:00 AM CDT ESTIMATED GFR Routine 05/04/2018 6:15 AM CDT LIPASE LEVEL Routine 05/04/2018 6:15 AM CDT AMYLASE LEVEL Routine 05/04/2018 6:15 AM CDT COMPREHENSIVE METABOLIC Routine 05/04/2018 PANEL 6:15 AM CDT HC COMPLETE BLD COUNT Routine 05/04/2018 W/AUTO DIFF 6:15 AM CDT URINALYSIS SCREEN AND STAT 05/02/2018 MICROSCOPY, WITH REFLEX 11:41 PM CDT TO CULTURE URINE CULTURE STAT 05/02/2018 11:[address] ABDOMEN PELVIS WO STAT 05/02/2018 CONTRAST 10:54 PM CDT ESTIMATED GFR STAT 05/02/2018 10:10 PM CDT TROPONIN STAT 05/02/2018 10:10 PM CDT CREATINE KINASE, TOTAL STAT 05/02/2018 (CPK) 10:10 PM CDT LIPASE LEVEL STAT 05/02/2018 10:10 PM CDT COMPREHENSIVE METABOLIC STAT 05/02/2018 PANEL 10:10 PM CDT PARTIAL THROMBOPLASTIN STAT 05/02/2018 TIME (PTT) 10:10 PM CDT PROTHROMBIN TIME WITH INR STAT 05/02/2018 10:10 PM CDT HC COMPLETE BLD COUNT STAT 05/02/2018 W/AUTO DIFF 10:10 PM CDT ECG 12-LEAD STAT 05/02/2018 9:58 PM CDT CREATININE LEVEL, URINE, Routine 03/14/2018 RANDOM 11:00 AM CDT PROTEIN, URINE, RANDOM Routine 03/14/2018 11:00 AM CDT ZZESTIMATED GFR Routine 03/14/2018 5:50 AM CDT VITAMIN D 25 HYDROXY Routine 03/14/2018 LEVEL 5:50 AM CDT HC COMPLETE BLD COUNT Routine 03/14/2018 W/AUTO DIFF 5:50 AM CDT COMPREHENSIVE METABOLIC Routine 03/14/2018 PANEL 5:50 AM CDT ZZESTIMATED GFR Routine 03/13/2018 5:20 AM CDT COMPREHENSIVE METABOLIC Routine 03/13/2018 PANEL 5:20 AM CDT CREATININE LEVEL, URINE, Routine 03/12/2018 RANDOM 6:30 PM CDT PROTEIN, URINE, RANDOM Routine 03/12/2018 6:30 PM CDT ZZESTIMATED GFR Routine 03/10/2018 5:25 AM CDT BASIC METABOLIC PANEL Routine 03/10/2018 5:25 AM CDT HC COMPLETE BLD COUNT Routine 03/10/2018 W/AUTO DIFF 5:25 AM CDT NM MYOCARDIAL PERFUSION Routine 03/09/2018 REST STRESS 1 DAY 11:31 AM CDT CV STRESS TEST NUCLEAR Routine 03/09/2018 CARDIO 11:31 AM CDT ZZESTIMATED GFR Routine 03/09/2018 1:10 AM CDT CYCLOSPORINE LEVEL, Routine 03/09/2018 RANDOM 1:10 AM CDT COMPREHENSIVE METABOLIC Routine 03/09/2018 PANEL 1:10 AM CDT CBC WITH PLATELET AND Routine 03/09/2018 DIFFERENTIAL 1:10 AM CDT CREATININE LEVEL, URINE, Routine 03/08/2018 RANDOM 3:15 PM CDT PROTEIN, URINE, RANDOM Routine 03/08/2018 3:15 PM CDT ECG 12-LEAD STAT 03/08/2018 11:06 AM CDT ZZESTIMATED GFR Routine 03/08/2018 4:07 AM CDT COMPREHENSIVE METABOLIC Routine 03/08/2018 PANEL 4:07 AM CDT CBC HEMOGRAM Routine 03/08/2018 4:07 AM CDT IGG SUBCLASSES Routine 03/07/2018 4:15 AM CDT TRIGLYCERIDES Routine 03/07/2018 4:15 AM CDT POC GLUCOSE Routine 03/06/2018 11:11 PM CDT ECHOCARDIOGRAM 2D Routine 03/06/2018 COMPLETE W MMODE SPECTRAL 9:11 AM CDT COLOR DOPPLER ([id number]) ZZESTIMATED GFR Timed 03/06/2018 5:53 AM CDT LIPASE LEVEL Timed 03/06/2018 5:53 AM CDT AMYLASE LEVEL Timed 03/06/2018 5:53 AM CDT COMPREHENSIVE METABOLIC Timed 03/06/2018 PANEL 5:53 AM CDT HC COMPLETE BLD COUNT Timed 03/06/2018 W/AUTO DIFF 5:53 AM CDT TROPONIN Timed 03/06/2018 5:53 AM CDT TROPONIN Timed 03/05/2018 9:15 PM CDT US ABDOMEN COMPLETE Routine 03/05/2018 8:13 PM CDT URINALYSIS, AUTOMATED STAT 03/05/2018 WITH MICROSCOPY 5:14 PM CDT GRAM STAIN Routine 03/05/2018 5:14 PM CDT URINE CULTURE Routine 03/05/2018 5:14 PM CDT ZZESTIMATED GFR STAT 03/05/2018 4:38 PM CDT LACTIC ACID LEVEL, SEPSIS Timed 03/05/2018 - NOW AND REPEAT 2X EVERY 4:38 PM CDT 3 HOURS TROPONIN Timed 03/05/2018 4:38 PM CDT BASIC METABOLIC PANEL STAT 03/05/2018 4:38 PM CDT POC GLUCOSE Routine 03/05/2018 3:29 PM CDT BLOOD CULTURE, AEROBIC & Routine 03/05/2018 ANAEROBIC 1:59 PM CDT BLOOD CULTURE, AEROBIC & Routine 03/05/2018 ANAEROBIC 1:45 PM CDT XR CHEST 1 VW PORTABLE STAT 03/05/2018 12:40 PM CDT AMYLASE LEVEL STAT 03/05/2018 12:25 PM CDT ZZESTIMATED GFR STAT 03/05/2018 12:25 PM CDT MAGNESIUM LEVEL STAT 03/05/2018 12:25 PM CDT T4, FREE STAT 03/05/2018 12:25 PM CDT THYROID STIMULATING STAT 03/05/2018 HORMONE 12:25 PM CDT LACTIC ACID LEVEL, SEPSIS STAT 03/05/2018 - NOW AND REPEAT 2X EVERY 12:25 PM CDT 3 HOURS LIPASE LEVEL STAT 03/05/2018 12:25 PM CDT B NATRIURETIC PEPTIDE STAT 03/05/2018 12:25 PM CDT CREATINE KINASE, TOTAL STAT 03/05/2018 (CPK) 12:25 PM CDT TROPONIN STAT 03/05/2018 12:25 PM CDT PARTIAL THROMBOPLASTIN STAT 03/05/2018 TIME (PTT) 12:25 PM CDT PROTHROMBIN TIME WITH INR STAT 03/05/2018 12:25 PM CDT COMPREHENSIVE METABOLIC STAT 03/05/2018 PANEL 12:25 PM CDT HC COMPLETE BLD COUNT STAT 03/05/2018 W/AUTO DIFF 12:25 PM CDT ECG 12-LEAD STAT 03/05/2018 12:14 PM CDT ECG ED PRELIMINARY Routine 03/05/2018 INTERPRETATION 12:12 PM CDT DC CRITICAL CARE, E/M Routine 03/05/2018 30-74 MINUTES 12:12 PM CDT after 02/27/2018 Results * CT Abdomen W Wo Contrast (01/22/2019 10:24 AM CDT) Only the most recent of 3 results within the time period is included. Specimen Narrative Performed At EXAMINATION:CT ABDOMEN W WO CONTRAST [facility] CLINICAL HISTORY:K86.2 Cyst of pancreas, K86.3 Pseudocyst of pancreas, K86.2 TECHNIQUE: Multi-detector computed axial tomography (CAT) of the abdomen was performed without and with IV iodinated contrast according to pancreatic protocol. Sagittal and coronal computerized reformatted images were created at a workstation and archived for review. DOSE REDUCTION: CT imaging was performed with iterative reconstruction technique and/or automated exposure control to reduce radiation dose. COMPARISON:CT abdomen and pelvis August 22, 2018. MRI abdomen May 08, 2018. IMPRESSION: 1.There is an approximately 1 cm cyst located within the pancreatic head. MRI of May 08, 2018 showed a complex cyst in the pancreatic head measuring 2.1 cm at that time. The cyst was not well demonstrated on the most recent CT of August 22, 2018. 2.Temporary main pancreatic duct stent remains in place. There has been migration of the distal stent into the pancreatic body. The proximal stent remains within the duodenum. 3.Pancreaticobiliary system is normal in caliber. No evidence of pancreatic duct or biliary obstruction. Trace pneumobilia is present. 4.There is no evidence of acute or chronic pancreatitis nor pancreatic atrophy. 5.Persistent diffuse mucosal enhancement and submucosal thickening of the gastric pylorus with evidence of partial gastric outlet obstruction. There is also a nonspecific focus of submucosal hypoenhancement within the gastric pylorus. These findings are suspicious for peptic ulcer disease. 6.Cirrhosis and diffuse steatosis of the liver. Other findings as below. FINDINGS: Temporary plastic main pancreatic duct stent is again identified. Proximal stent is located at the junction of the descending and horizontal duodenum. The distal 1 cm of the stent has migrated outside of the main pancreatic duct and is located within the tissues of the proximal pancreatic body (series 4 image 43). Main pancreatic duct is normal in caliber. There are no pancreatic calcifications nor inflammatory changes. Pancreas exhibits normal enhancement, and there is no significant atrophy. A subcentimeter lipoma is located within the tail. A residual cyst within the pancreatic head measures 1 cm in size. There is persistent mucosal enhancement and submucosal thickening of the gastric pylorus, and thin crescentic low density is seen within the submucosa superomedially (series 600 B images 32-35, series 5 images 46-50). Stomach is moderately distended with fluid. No evidence of obstruction or inflammation in the GI tract. Diverticulosis of the colon. Liver is cirrhotic with diffuse fatty infiltration. Calcified granulomas are located within the spleen. Adrenals and kidneys are unremarkable. Pancreaticobiliary system is nondistended. There is trace pneumobilia within the common hepatic and left central intrahepatic ducts. Aorta is nonaneurysmal. Superior mesenteric artery and portal venous system are patent. No adenopathy, free fluid, fluid collection. Heart is normal in size. Mild subpleural scarring in the right lung base and tiny calcified granulomas bilaterally. No pericardial or pleural effusion. Bones are severely demineralized. Vertebral body compression fractures, vertebroplasty, spinal fusion, and vertebral body reconstruction seen in the thoracolumbar spine. Chronic bilateral rib fractures. Partial resection of the left 10th rib. [id number] Procedure Note Hm Interface, Radiology Results Incoming - 01/22/2019 10:58 AM CDT EXAMINATION: CT ABDOMEN W WO CONTRAST CLINICAL HISTORY: K86.2 Cyst of pancreas, K86.3 Pseudocyst of pancreas, K86.2 TECHNIQUE: Multi-detector computed axial tomography (CAT) of the abdomen was performed without and with IV iodinated contrast according to pancreatic protocol. Sagittal and coronal computerized reformatted images were created at a workstation and archived for review. DOSE REDUCTION: CT imaging was performed with iterative reconstruction technique and/or automated exposure control to reduce radiation dose. COMPARISON: CT abdomen and pelvis August 22, 2018. MRI abdomen May 08, 2018. IMPRESSION: 1. There is an approximately 1 cm cyst located within the pancreatic head. MRI of May 08, 2018 showed a complex cyst in the pancreatic head measuring 2.1 cm at that time. The cyst was not well demonstrated on the most recent CT of August 22, 2018. 2. Temporary main pancreatic duct stent remains in place. There has been migration of the distal stent into the pancreatic body. The proximal stent remains within the duodenum. 3. Pancreaticobiliary system is normal in caliber. No evidence of pancreatic duct or biliary obstruction. Trace pneumobilia is present. 4. There is no evidence of acute or chronic pancreatitis nor pancreatic atrophy. 5. Persistent diffuse mucosal enhancement and submucosal thickening of the gastric pylorus with evidence of partial gastric outlet obstruction. There is also a nonspecific focus of submucosal hypoenhancement within the gastric pylorus. These findings are suspicious for peptic ulcer disease. 6. Cirrhosis and diffuse steatosis of the liver. Other findings as below. FINDINGS: Temporary plastic main pancreatic duct stent is again identified. Proximal stent is located at the junction of the descending and horizontal duodenum. The distal 1 cm of the stent has migrated outside of the main pancreatic duct and is located within the tissues of the proximal pancreatic body (series 4 image 43). Main pancreatic duct is normal in caliber. There are no pancreatic calcifications nor inflammatory changes. Pancreas exhibits normal enhancement, and there is no significant atrophy. A subcentimeter lipoma is located within the tail. A residual cyst within the pancreatic head measures 1 cm in size. There is persistent mucosal enhancement and submucosal thickening of the gastric pylorus, and thin crescentic low density is seen within the submucosa superomedially (series 600 B images 32-35, series 5 images 46-50). Stomach is moderately distended with fluid. No evidence of obstruction or inflammation in the GI tract. Diverticulosis of the colon. Liver is cirrhotic with diffuse fatty infiltration. Calcified granulomas are located within the spleen. Adrenals and kidneys are unremarkable. Pancreaticobiliary system is nondistended. There is trace pneumobilia within the common hepatic and left central intrahepatic ducts. Aorta is nonaneurysmal. Superior mesenteric artery and portal venous system are patent. No adenopathy, free fluid, fluid collection. Heart is normal in size. Mild subpleural scarring in the right lung base and tiny calcified granulomas bilaterally. No pericardial or pleural effusion. Bones are severely demineralized. Vertebral body compression fractures, vertebroplasty, spinal fusion, and vertebral body reconstruction seen in the thoracolumbar spine. Chronic bilateral rib fractures. Partial resection of the left 10th rib. [facility]-[id number] Performing Organization Address City/State/Zipcode Phone Number [facility] [address] [place] [address] * Estimated GFR (01/22/2019 9:18 AM CDT) Only the most recent of 43 results within the time period is included. Estimated GFR >=90 mL/min/1.73 m2 [place] Comment: [facility] rpretation G1 >=90 Normal or high G2 60-89Mildly decreased [id number] Mildly to moderately decreased [id number] Moderately to severely decreased G4 15-29Severely decreased G5 <15Kidney failure The eGFR was calculated using the Chronic Kidney Disease Epidemiology Collaboration (CKD-EPI) equation. Interpretation is based on recommendations of the National Kidney Foundation-Kidney Disease Outcomes Quality Initiative (NKF-KDOQI) published in 2014. Specimen Plasma specimen Performing Organization Address City/State/Zipcode Phone Number [facility] [place] [id number] [place] [address] PATHOLOGY AND GENOMIC MEDICINE [address] * Creatinine, whole blood (01/22/2019 9:18 AM CDT) Only the most recent of 2 results within the time period is included. Pathologist [facility] Creatinine, 0.90 0.70 - 1.20 mg/dL [place] whole blood [facility] Specimen Plasma specimen Performing Organization Address City/[facility] [place] [address] PATHOLOGY AND GENOMIC MEDICINE [address] * CBC with platelet and differential (08/28/2018 4:50 AM DIRECTOR OF FIELD COORDINATION) Only the most recent of 43 results within the time period is included. Pathologist [facility] WBC 6.9 4.5 - 11.0 k/uL [facility] RBC 3.81 (L) 4.40 - 6.00 m/uL [facility] HGB 11.0 (L) 14.0 - 18.0 g/dL [facility] HCT 35.5 (L) 41.0 - 51.0 % [facility] MCV 93.2 82.0 - 100.0 fL [facility] MCH 28.9 27.0 - 34.0 pg [facility] MCHC 31.0 31.0 - 37.0 g/dL [facility] RDW - SD 55.8 (H) 37.0 - 55.0 fL [facility] MPV 13.0 (H) 6.9 - 11.0 fL [facility] Platelet count 113 (L) 150 - 400 K/uL [facility] Nucleated RBC 0.00 /100 WBC [facility] Neutrophils 64.6 39.0 - 69.0 % [facility] Lymphocytes 21.0 (L) 25.0 - 45.0 % [facility] Monocytes 11.0 (H) 0.0 - 10.0 % [facility] Eosinophils 2.2 0.0 - 5.0 % [facility] Basophils 0.3 0.0 - 1.0 % [facility] Immature 0.9 0.0 - 1.0 % [place] granulocytes [facility] Specimen Blood Performing Organization Address City/State/Zipcode Phone Number [facility] [place] [address] [place] [address] PATHOLOGY AND GENOMIC MEDICINE [facility] [address] * Comprehensive metabolic panel (08/28/2018 4:50 AM DIRECTOR OF FIELD COORDINATION) Only the most recent of 35 results within the time period is included. Sodium 141 135 - 148 mEq/L [facility] Potassium 4.9 3.5 - 5.0 mEq/L [facility] Chloride 103 98 - 112 mEq/L [facility] CO2 33 (H) 24 - 31 mEq/L [facility] Anion gap 5@ANIO (L) 7 - 15 mEq/L [facility] BUN 9 8 - 23 mg/dL [facility] Creatinine 0.96 0.70 - 1.20 mg/dL [facility] Glucose 84 65 - 99 mg/dL [facility] Calcium 8.5 (L) 8.8 - 10.2 mg/dL [facility] Protein 4.5 (L) 6.3 - 8.3 g/dL [facility] Albumin 2.3 (L) 3.5 - 5.0 g/dL [facility] A/G ratio 1.0 0.7 - 3.8 [facility] Alkaline 85 40 - 129 U/L [place] phosphatase [facility] AST 14 10 - 50 U/L [facility] ALT 21 5 - 50 U/L [facility] Total bilirubin <0.2 0.2 - 1.2 mg/dL [facility] Specimen Plasma specimen Performing Organization Address City/[facility] Phone Number [facility] [place] [address] PATHOLOGY AND GENOMIC MEDICINE [address] * Protein, urine, random (08/27/2018 3:15 PM DIRECTOR OF FIELD COORDINATION) Only the most recent of 10 results within the time period is included. Total volume, 70 mL [place] urine [facility] Urine protein 338 mg/dL [place] concentration [facility] Urine protein 237 mg/vol [place] excretion [facility] Specimen Urine Performing Organization Address [facility] Phone Number [facility] [place] [address] PATHOLOGY AND [facility] MEDICINE [address] * Creatinine level, urine, random (08/27/2018 3:15 PM DIRECTOR OF FIELD COORDINATION) Only the most recent of 10 results within the time period is included. Total volume, 70 mL [place] urine [facility] Urine 48 mg/dL [place] creatinine [facility] Urine 34 mg/vol [place] creatinine [facility] Specimen Urine Performing Organization Address [facility] Phone Number [facility] [place] [address] PATHOLOGY AND [facility] MEDICINE [address] * Basic metabolic panel (08/26/2018 5:08 AM DIRECTOR OF FIELD COORDINATION) Only the most recent of 14 results within the time period is included. Sodium 137 135 - 148 mEq/L [facility] Potassium 3.5 3.5 - 5.0 mEq/L [facility] Chloride 102 98 - 112 mEq/L [facility] CO2 29 24 - 31 mEq/L [facility] Anion gap 6@ANIO (L) 7 - 15 mEq/L [facility] BUN 8 8 - 23 mg/dL [facility] Creatinine 0.97 0.70 - 1.20 mg/dL [facility] Glucose 83 65 - 99 mg/dL [facility] Calcium 8.1 (L) 8.8 - 10.2 mg/dL [facility] Specimen Plasma specimen Performing Organization Address City/State/Zipcode Phone Number [facility] [place] [address] [place] [address] PATHOLOGY AND GENOMIC MEDICINE [address] * Surgical pathology request (08/23/2018 11:13 AM DIRECTOR OF FIELD COORDINATION) Only the most recent of 2 results within the time period is included. [facility] DEPARTMENT OF PATHOLOGY AND GENOMIC MEDICINE Surgical See link below for PDF Lab [facility] DEPARTMENT pathology Report OF PATHOLOGY report AND GENOMIC MEDICINE Result status This is Final Report for [facility] DEPART[facility] [id number] OF PATHOLOGY AND GENOMIC MEDICINE Specimen Performing Organization Address City/[facility]ode Phone Number [facility] [place] [address] [place] [address] PATHOLOGY AND GENOMIC MEDICINE * CT Abdomen WWO Contrast, Pelvis W Contrast (08/22/2018 5:56 PM DIRECTOR OF FIELD COORDINATION) Specimen Narrative Performed At EXAMINATION:CT ABDOMEN WWO CONTRAST PELVIS W CONTRAST [facility] CLINICAL HISTORY:Abd distension, evaluate if portal vein thrombosis still present and eval pancreatitis TECHNIQUE: Noncontrast images of the abdomen were obtained. Subsequently, axial images of the abdomen and pelvis were obtained following intravenous administration of iodinated contrast using multiphasic liver protocol. Sagittal and coronal computerized reformatted images were also obtained. CT imaging was performed with iterative reconstruction techniques and/or automated exposure control to reduce radiation dose. COMPARISON:August 04, 2018 FINDINGS: Portal vein is patent. Nonocclusive thrombus in the left portal vein seen dating back to July 10, 2018 scan has resolved. Patent SMV and splenic vein. The liver shows subtle contour irregularity. Correlate clinically for chronic hepatitis. No focal hepatic mass. Nondistended gallbladder containing some gas. No biliary dilatation. Mild pneumobilia. Trace stranding around the head of the pancreas is mostly resolved. Pancreatic duct stent is in place. A 1.4 cm pseudocyst abutting the uncinate process is decreased in size. No new fluid collection or free fluid. Moderate thickening involving the gastric hilar or a cyst is stable. A 1.3 cm hypoattenuating fullness is noted at the lateral margin in this region (series 5 image 47), similar to prior. Unremarkable kidneys and adrenal glands. Distended bladder. No hydronephrosis. No evidence of bowel obstruction. Thin gas lucency along the wall of the right colon is probably along the luminal surface between the mucosa and luminal content, versus less likely pneumatosis. Similar finding is seen to lesser extent in the stomach. There is no significant adjacent stranding or mural thickening. No venous gas or free air. Diverticulosis in the left colon without evidence of diverticulitis. Extensive degenerative and postsurgical changes in the thoracolumbar spine. IMPRESSION: Improved inflammatory signs around the pancreatic head. Most prominent residual abnormality involves the gastric pylorus where there is stable mural thickening and possibly a pericentimeter fluid pocket, which is probably residual sequelae of pancreatitis with tiny pseudocyst though peptic ulcer disease may also appear similar. No portal vein thrombosis. Please see above for other incidental findings. [facility]-[id number] Procedure Note [facility], Radiology Results Incoming - 08/22/2018 6:14 PM DIRECTOR OF FIELD COORDINATION EXAMINATION: CT ABDOMEN WWO CONTRAST PELVIS W CONTRAST CLINICAL HISTORY: Abd distension, evaluate if portal vein thrombosis still present and eval pancreatitis TECHNIQUE: Noncontrast images of the abdomen were obtained. Subsequently, axial images of the abdomen and pelvis were obtained following intravenous administration of iodinated contrast using multiphasic liver protocol. Sagittal and coronal computerized reformatted images were also obtained. CT imaging was performed with iterative reconstruction techniques and/or automated exposure control to reduce radiation dose. COMPARISON: August 04, 2018 FINDINGS: Portal vein is patent. Nonocclusive thrombus in the left portal vein seen dating back to July 10, 2018 scan has resolved. Patent SMV and splenic vein. The liver shows subtle contour irregularity. Correlate clinically for chronic hepatitis. No focal hepatic mass. Nondistended gallbladder containing some gas. No biliary dilatation. Mild pneumobilia. Trace stranding around the head of the pancreas is mostly resolved. Pancreatic duct stent is in place. A 1.4 cm pseudocyst abutting the uncinate process is decreased in size. No new fluid collection or free fluid. Moderate thickening involving the gastric hilar or a cyst is stable. A 1.3 cm hypoattenuating fullness is noted at the lateral margin in this region (series 5 image 47), similar to prior. Unremarkable kidneys and adrenal glands. Distended bladder. No hydronephrosis. No evidence of bowel obstruction. Thin gas lucency along the wall of the right colon is probably along the luminal surface between the mucosa and luminal content, versus less likely pneumatosis. Similar finding is seen to lesser extent in the stomach. There is no significant adjacent stranding or mural thickening. No venous gas or free air. Diverticulosis in the left colon without evidence of diverticulitis. Extensive degenerative and postsurgical changes in the thoracolumbar spine. IMPRESSION: Improved inflammatory signs around the pancreatic head. Most prominent residual abnormality involves the gastric pylorus where there is stable mural thickening and possibly a pericentimeter fluid pocket, which is probably residual sequelae of pancreatitis with tiny pseudocyst though peptic ulcer disease may also appear similar. No portal vein thrombosis. Please see above for other incidental findings. [facility]-[id number] Performing Organization Address City/[facility] Centercomn Phone Number [facility] [address] [place] [address] * ECG Pre/Post Op (08/22/2018 5:50 AM DIRECTOR OF FIELD COORDINATION) Ventricular 58 [facility] rate Atrial rate 58 [facility] DC interval 156 [facility] QRSD interval 70 [facility] QT interval 430 [facility] QTC interval 422 [facility] P axis 1 11 [facility] QRS axis 1 64 [facility] T wave axis 51 [facility] EKG impression Sinus bradycardia-Abnormal [facility] MUSE ECG-In automated comparison with ECG of 05-AUG-2018 17:04,-Septal infarct is now present-T wave amplitude has increased in Anterior leads- Specimen Narrative Performed At Performing Organization Address [facility] Phone Number [facility] [employer] [address] [place] [address] * Prothrombin time with INR (08/22/2018 4:47 AM DIRECTOR OF FIELD COORDINATION) Only the most recent of 8 results within the time period is included. Prothrombin 14.6 (H) 11.5 - 14.5 sec [facility] INR 1.2 [place] Comment: [facility] [employer] Normalized [facility] Ratio (INR) is a therapeutic monitoring tool for patients who are stable on oral anticoagulant therapy. An INR of 2.0-3.0 is suggested for deep vein thrombosis/pulmonary embolism. Specimen Blood Performing Organization Address [facility] Centercode Phone Number [facility] DEPARTMENT [address] * Lipase level (08/22/2018 4:47 AM DIRECTOR OF FIELD COORDINATION) Only the most recent of 16 results within the time period is included. Lipase 80 (H) 13 - 60 U/L [facility] Specimen Plasma specimen Performing Organization Address [facility] Centercom[facility] Phone Number [facility] DEPARTMENT [address] * Hemoglobin & hematocrit (08/21/2018 11:55 PM DIRECTOR OF FIELD COORDINATION) Only the most recent of 4 results within the time period is included. HGB 10.0 (L) 14.0 - 18.0 g/dL [facility] HCT 31.3 (L) 41.0 - 51.0 % [facility] Specimen Blood Performing Organization Address [facility] Phone Number [facility] [place] [address] * C difficile toxin (08/21/2018 7:10 PM DIRECTOR OF FIELD COORDINATION) Clostridium No Clostridium difficle toxin [place] difficile toxin present [facility] Comment: HOSPITAL Specimen Information Specimen Source: Stool Specimen Site: Nonpreserved Specimen Stool - Nonpreserved Performing Organization Address City/State/Zipcode Phone Number [facility] DEPARTMENT [address] [place] [address] [place] [address] HOSPITAL * Transfuse RBC (08/21/2018 8:49 AM DIRECTOR OF FIELD COORDINATION) Only the most recent of 3 results within the time period is included. * Lactic acid level, SEPSIS - Now and repeat 2x every 3 hours (08/20/2018 8:00 PM DIRECTOR OF FIELD COORDINATION) Only the most recent of 5 results within the time period is included. Lactic acid 2.7 (H) 0.5 - 2.2 mmol/L [facility] Specimen Plasma specimen Performing Organization Address City/[facility] [place] [address] PATHOLOGY AND GENOMIC MEDICINE [address] * Urinalysis screen and microscopy, with reflex to culture (08/20/2018 5:29 PM DIRECTOR OF FIELD COORDINATION) Only the most recent of 4 results within the time period is included. Specimen site Clean catch [facility] Color, UA Yellow [facility] Appearance, UA Clear [facility] Specific 1.024 1.001 - 1.030 [place] gravity, [facility] pH, UA 5.0 5.0 - 9.0 [facility] Protein, UA 2+ (A) Negative [facility] Glucose, UA Negative Negative [facility] Ketones, UA Trace (A) Negative [facility] Bilirubin, UA Negative Negative [facility] Blood, UA Negative Negative [facility] Nitrite, UA Negative Negative [facility] Urobilinogen, <2.0 <2.0 E.U./dL [facility] Leukocyte Negative Negative [place] esterase, UA [facility] Epithelial <1 /HPF [place] cells, UA [facility] Round <1 0 - 5 /HPF [place] epithelial [facility] cells, [facility] WBC, UA 1 0 - 1 /HPF [facility] RBC, UA None seen 0 - 5 /HPF [facility] Bacteria, UA None seen None seen [facility] Yeast, UA None seen [facility] Yeast with None seen [place] [facility] Specimen Urine Performing Organization Address [facility] [place] [address] PATHOLOGY [address] * Urine culture (08/20/2018 5:29 PM DIRECTOR OF FIELD COORDINATION) Only the most recent of 5 results within the time period is included. Pathologist [facility] Urine culture SEE COMMENTComment: [place] Bacteriuria screen negative. [facility] Specimen Performing Organization Address City/[facility] Centercode Phone Number [facility] DEPARTMENT [address] * CRITICAL CARE (08/20/2018 1:52 PM DIRECTOR OF FIELD COORDINATION) Narrative Performed At Sean Poe MD 08/20/20188:12 PM Critical Care Performed by: Sean Poe MD Authorized by: Sean Poe MD Critical care provider statement: Critical care time (minutes):44 Critical care was necessary to treat or prevent imminent or life-threatening deterioration of the following conditions:Circulatory failure, shock and metabolic crisis Critical care was time spent personally by me on the following activities:Discussions with consultants, blood draw for specimens, development of treatment plan with patient or surrogate, evaluation of patient's response to treatment, examination of patient, review of old charts, re-evaluation of patient's condition, pulse oximetry, ordering and review of radiographic studies, ordering and review of laboratory studies, ordering and performing treatments and interventions and obtaining history from patient or surrogate * Partial thromboplastin time, activated (08/20/2018 1:34 PM DIRECTOR OF FIELD COORDINATION) Only the most recent of 4 results within the time period is included. Pathologist [facility] PTT 29.0 23.0 - 36.0 sec [place] Comment: [facility] PTT therapeutic range for [facility] unfractionated heparin is 61.0-112.0 seconds which corresponds to Anti-Xa 0.3-0.7 U/ml. Specimen Blood Performing Organization Address City/[facility]/Zipcode Phone Number [facility] [id number] [place] [address] * Prepare RBC, 2 Units (08/20/2018 1:34 PM DIRECTOR OF FIELD COORDINATION) Product name Aph Red Cells AS1 LR [facility] Unit number [id number] [facility] Product code [id number] [facility] Dispense status Transfused [facility] Blood [id number] [place] expiration date [facility] Blood type code 5100 [facility] Blood type O POSITIVE [facility] Product name Apheresis -3 LR #1 [facility] Unit number [id number] [facility] Product code [id number] [facility] Dispense status Transfused [facility] Blood [id number] [place] expiration date [facility] Blood type code 5100 [facility] Blood type O POSITIVE [facility] Specimen Performing Organization Address City/State/[place] [address] PATHOLOGY AND GENOMIC MEDICINE [address] * Type and screen (08/20/2018 1:34 PM DIRECTOR OF FIELD COORDINATION) ABO grouping OComment: 08/20/18 22:24 RC [place] are available for pickup. sllg [facility] Rh type POS [facility] Antibody screen NEG [place] (gel) [facility] Specimen Blood Performing Organization Address City/[facility] [place] [address] PATHOLOGY AND GENOMIC MEDICINE [address] * Manual differential (08/11/2018 4:50 AM DIRECTOR OF FIELD COORDINATION) Only the most recent of 5 results within the time period is included. Manual PERFORMED [place] differential [facility] Neutrophils 82.0 (H) 39.0 - 69.0 % [facility] Lymphocytes 11.0 (L) 25.0 - 45.0 % [facility] Monocytes 7.0 0.0 - 10.0 % [facility] Eosinophils 0.0 0.0 - 5.0 % [facility] Basophils 0.0 0.0 - 1.0 % [facility] Platelet slide Lynne slt decr (A) [place] review [facility] Specimen Performing Organization Address City/[facility] [place] [address] PATHOLOGY AND [facility] MEDICINE [address] * Bilirubin direct (08/11/2018 4:50 AM DIRECTOR OF FIELD COORDINATION) Only the most recent of 3 results within the time period is included. Bilirubin <0.2 0.0 - 0.3 mg/dL [facility] Specimen Plasma specimen Performing Organization Address City/[facility]/Zipcode Phone Number [facility] [place] [address] PATHOLOGY [address] * Hepatic function panel (08/10/2018 5:49 PM DIRECTOR OF FIELD COORDINATION) Only the most recent of 2 results within the time period is included. Albumin 2.5 (L) 3.5 - 5.0 g/dL [facility] Total bilirubin <0.2 0.2 - 1.2 mg/dL [facility] Bilirubin <0.2 0.0 - 0.3 mg/dL [facility] Alkaline 203 (H) 40 - 129 U/L [facility] Protein 5.1 (L) 6.3 - 8.3 g/dL [facility] ALT 349 (H) 5 - 50 U/L [facility] AST 83 (H) 10 - 50 U/L [facility] Specimen Plasma specimen Performing Organization Address City/[facility]/Zipcode Phone Number [facility] DEPARTMENT OF [address] [place] [address] PATHOLOGY AND [facility] MEDICINE [address] * Urinalysis, automated with microscopy (08/07/2018 3:32 PM DIRECTOR OF FIELD COORDINATION) Only the most recent of 2 results within the time period is included. Color, UA Yellow [facility] Appearance, UA Sl Cloudy [facility] Specific 1.026 1.001 - 1.030 [place] gravity, UA [facility] pH, UA 6.0 5.0 - 9.0 [facility] Protein, UA 3+ (A) Negative [facility] Glucose, UA Negative Negative [facility] Ketones, UA Negative Negative [facility] Bilirubin, UA Negative Negative [facility] Blood, UA Small (A) Negative [facility] Nitrite, UA Negative Negative [facility] Urobilinogen, <2.0 <2.0 E.U./dL [facility] Leukocyte Negative Negative [place] esterase, UA [facility] Epithelial 1 /HPF [place] cells, UA [facility] WBC, UA 1 0 - 1 /HPF [facility] RBC, UA 5 0 - 5 /HPF [facility] Bacteria, UA None seen None seen [facility] Yeast, UA None seen [facility] Yeast with None seen [place] [facility] Specimen Urine Performing Organization Address City/State/Zipcode Phone Number [facility] DEPARTMENT [id number] [place] [address] PATHOLOGY AND GENOMIC MEDICINE [address] * POC glucose (08/06/2018 4:16 PM DIRECTOR OF FIELD COORDINATION) Only the most recent of 14 results within the time period is included. POC glucose 140 (H) 65 - 99 mg/dL [place] Comment: PHILIP RADER RN Notified [facility] Meter ID: [id number] Sports Specialist: Ronald Acosta Specimen Performing Organization Address City/State/Zipcode Phone Number [facility] DEPARTMENT [id number] [place] [address] PATHOLOGY AND GENOMIC MEDICINE [address] * Cortisol level, AM (08/06/2018 3:30 AM DIRECTOR OF FIELD COORDINATION) Cortisol, AM 25 (H) 6 - 18 ug/dL [facility] Specimen Plasma specimen Performing Organization Address City/State/Zipcode Phone Number [facility] DEPARTMENT [address] [address] PATHOLOGY AND GENOMIC MEDICINE [address] [place] [address] * Blood culture, aerobic & anaerobic (08/06/2018 3:30 AM DIRECTOR OF FIELD COORDINATION) Only the most recent of 5 results within the time period is included. Blood culture No growth after 5 days of [place] isolate incubation. [facility] Comment: HOSPITAL Specimen Information Specimen Source: Blood Specimen Site: Line, PICC Specimen Blood - Line, PICC Performing Organization Address City/[facility] Phone Number [facility] DEPARTMENT OF [address] [place] [address] PATHOLOGY [place] [address] HOSPITAL * Phosphorus level (08/06/2018 3:30 AM DIRECTOR OF FIELD COORDINATION) Only the most recent of 7 results within the time period is included. Phosphorus 3.5 2.4 - 4.5 mg/dL [facility] Specimen Plasma specimen Performing Organization Address [facility] Phone Number [facility] DEPARTMENT [address] * Magnesium level (08/06/2018 3:30 AM DIRECTOR OF FIELD COORDINATION) Only the most recent of 10 results within the time period is included. Magnesium 1.9 1.6 - 2.4 mg/dL [facility] Specimen Plasma specimen Performing Organization Address [facility] Phone Number [facility] [place] [address] PATHOLOGY AND [facility] MEDICINE [address] * Ionized calcium (08/06/2018 3:30 AM DIRECTOR OF FIELD COORDINATION) Only the most recent of 4 results within the time period is included. pH 7.40 [facility] Ionized calcium 1.23 1.11 - 1.32 mmol/L [facility] Specimen Plasma specimen Performing Organization Address [facility] Phone Number [facility] [place] [address] PATHOLOGY AND [facility] MEDICINE [address] * Lactic acid level (08/05/2018 8:02 PM DIRECTOR OF FIELD COORDINATION) Only the most recent of 3 results within the time period is included. Lactic acid 3.0 (H) 0.5 - 2.2 mmol/L [facility] Specimen Plasma specimen Performing Organization Address City/State/Zipcode Phone Number [facility] DEPARTMENT OF [address] [place] [address] PATHOLOGY AND GENOMIC MEDICINE [address] * ECG 12 lead (08/05/2018 5:04 PM DIRECTOR OF FIELD COORDINATION) Only the most recent of 6 results within the time period is included. Ventricular 72 [facility] rate Atrial rate 72 [facility] DC interval 164 [facility] QRSD interval 76 [facility] QT interval 382 [facility] QTC interval 418 [facility] P axis 1 -8 [facility] QRS axis 1 82 [facility] T wave axis 36 [facility] EKG impression Normal sinus rhythm-Normal [facility] MUSE ECG-In automated comparison with ECG of 04-AUG-2018 15:40,-No significant change was found- Specimen Narrative Performed At Performing Organization Address City/[facility]/Zipcode Phone Number [facility] MUSE [address] [place] [address] * Troponin (08/05/2018 4:05 PM DIRECTOR OF FIELD COORDINATION) Only the most recent of 6 results within the time period is included. Troponin <0.30 0.00 - 0.30 ng/mL [place] Comment: [facility] 0.11 - 1.[address] [facility] ng/mlMay indicate increased risk of acute coronary syndrome. >=1.5 ng/ml Consistent with acute myocardial infarction. The diagnostic value of a single normal or non-diagnostic result is questionable.Serial samples at 2-6 hour intervals are required to rule out acute myocardial injury. Specimen Plasma specimen Performing Organization Address City/State/Zipcode Phone Number [facility] DEPARTMENT OF [address] [place] [address] PATHOLOGY AND GENOMIC MEDICINE [address] * XR Chest 1 Vw Portable (08/04/2018 3:53 PM DIRECTOR OF FIELD COORDINATION) Only the most recent of 2 results within the time period is included. Specimen Narrative Performed At SINGLE VIEW CHEST, 08/04/2018 [facility] Clinical History: Shortness of breath. Technique: Single, portable AP view chest. Comparison: None. Impression: 1.Right PICC terminating in the low SVC. 2.Clear lungs. 3.No pleural effusion. 4.Normal heart size. Tortuous thoracic aorta. 5.Intact skeleton. Low thoracic and high lumbar fusion. Procedure Note Interface, Radiology Results Incoming - 08/04/2018 4:00 PM DIRECTOR OF FIELD COORDINATION SINGLE VIEW CHEST, 08/04/2018 Clinical History: Shortness of breath. Technique: Single, portable AP view chest. Comparison: None. Impression: 1. Right PICC terminating in the low SVC. 2. Clear lungs. 3. No pleural effusion. 4. Normal heart size. Tortuous thoracic aorta. 5. Intact skeleton. Low thoracic and high lumbar fusion. Performing Organization Address [facility] Phone Number [address] [address] * Respiratory pathogen panel (08/02/2018 5:50 PM DIRECTOR OF FIELD COORDINATION) [facility] Respiratory Negative for all pathogens [place] pathogen panel tested: UATSDIN Negative for Adenovirus HOSPITAL Negative for Coronavirus HKU1 Negative for Coronavirus NL63 Negative for Coronavirus 229E Negative for Coronavirus OC43 Negative for Human Metapneumovirus Negative for Rhinovirus/Enterovirus Negative for Influenza A Negative for Influenza A/H1 Negative for Influenza A/H3 Negative for Influenza A/H1-2009 Negative for Influenza B Negative for Parainfluenza Virus 1 Negative for Parainfluenza Virus 2 Negative for Parainfluenza Virus 3 Negative for Parainfluenza Virus 4 Negative for Respiratory Syncytial Virus Negative for Bordetella pertussis Negative for Chlamydophila pneumoniae Negative for Mycoplasma pneumoniae This real-time PCR assay detects the presence of nucleic acids (RNA or DNA) for the respiratory pathogens listed. A result of "Not-detected" does not exclude the possibility of the presence of one or more pathogens at concentrations less than the detectable limits of the assay. Comment: Specimen Information Specimen Source: Nares Specimen Site: Left Specimen Nares - Left Performing Organization Address City/State/Zipcode Phone Number [facility] DEPARTMENT [address] [address] PATH[facility] [address] [place] [address] HOSPITAL * XR Chest 2 Vw (07/31/2018 8:13 PM DIRECTOR OF FIELD COORDINATION) Only the most recent of 2 results within the time period is included. Specimen Narrative Performed At EXAMINATION:XR CHEST 2 VW [facility] CLINICAL HISTORY:CAD riskhighasymptomatic, Pneumonia, Pneumothorax TECHNIQUE:XR CHEST 2 VW COMPARISON:Chest radiograph dated 07/26/2018 FINDINGS: Lines/tubes:There is a rightupper extremity PICC with its tip terminating near the cavoatrial junction. Heart and mediastinum:The cardiac silhouette is within normal limits for size.There is atherosclerotic calcification and mild ectasia of the thoracic aorta. Lungs:There is minimal atelectasis/scarring at the lung bases.There is no focal consolidation. There is no evidence of pulmonary edema. Pleura:There is no pleural effusion. There is no pneumothorax. Bones and Soft Tissues:There is demineralization and degenerative change of the visualized skeleton, with stable exaggeration of the thoracic kyphosis due to multilevel thoracic vertebral body height loss, and grossly intact posterior thoracolumbar spinal fixation hardware. There is no definite acute or suspicious osseous abnormality. IMPRESSION: No definite acute cardiothoracic abnormality. [facility]-[id number] Procedure Note Hm Interface, Radiology Results Incoming - 07/31/2018 8:36 PM DIRECTOR OF FIELD COORDINATION EXAMINATION: XR CHEST 2 VW CLINICAL HISTORY: CAD risk high asymptomatic, Pneumonia, Pneumothorax TECHNIQUE: XR CHEST 2 VW COMPARISON: Chest radiograph dated 07/26/2018 FINDINGS: Lines/tubes: There is a right upper extremity PICC with its tip terminating near the cavoatrial junction. Heart and mediastinum: The cardiac silhouette is within normal limits for size. There is atherosclerotic calcification and mild ectasia of the thoracic aorta. Lungs: There is minimal atelectasis/scarring at the lung bases. There is no focal consolidation. There is no evidence of pulmonary edema. Pleura: There is no pleural effusion. There is no pneumothorax. Bones and Soft Tissues: There is demineralization and degenerative change of the visualized skeleton, with stable exaggeration of the thoracic kyphosis due to multilevel thoracic vertebral body height loss, and grossly intact posterior thoracolumbar spinal fixation hardware. There is no definite acute or suspicious osseous abnormality. IMPRESSION: No definite acute cardiothoracic abnormality. [facility]-[id number] Performing Organization Address City/[facility] Centercode Phone Number [facility] [address] [place] [address] * Triglycerides (07/27/2018 4:50 AM DIRECTOR OF FIELD COORDINATION) Only the most recent of 4 results within the time period is included. Pathologist [facility] Triglycerides 82 0 - 149 mg/dL [facility] Specimen Plasma specimen Performing Organization Address [facility] Cent[facility]ode Phone Number [facility] DEPARTMENT [address] [place] [address] PATHOLOGY AND GENOMIC MEDICINE [facility] [id number] [place] [address] * Prealbumin level (07/27/2018 4:50 AM DIRECTOR OF FIELD COORDINATION) Only the most recent of 3 results within the time period is included. Pathologist [facility] Prealbumin 11 (L) 16 - 32 mg/dL [facility] Specimen Serum Performing Organization Address [facility] Phone Number [facility] [place] [address] PATHOLOGY [place] [address] HOSPITAL * OR [place] > I Hour (07/26/2018 10:49 AM DIRECTOR OF FIELD COORDINATION) Specimen Narrative Performed At EXAMINATION:OR [place] 1 HOUR [facility] CLINICAL HISTORY: IMPRESSION: Fluoroscopy was provided. No radiologist present.Please see procedure report for discussion of procedure, findings and fluoroscopic time. [facility]-[id number] Procedure Note Interface, Radiology Results Incoming - 07/26/2018 10:59 AM DIRECTOR OF FIELD COORDINATION EXAMINATION: OR [place] 1 HOUR CLINICAL HISTORY: IMPRESSION: Fluoroscopy was provided. No radiologist present. Please see procedure report for discussion of procedure, findings and fluoroscopic time. [facility]-[id number] Performing Organization Address [facility] Phone Number [facility] [address] [place] [address] * Heparin PF4 antibody (IgG) (07/23/2018 4:37 PM DIRECTOR OF FIELD COORDINATION) Heparin PF4 Ab 0.096 0.000 - 0.399 [place] OD reading [facility] Heparin PF4 Ab, Negative Negative [place] IgG [facility] Specimen Blood Performing Organization Address [facility]/Zipcode Phone Number [facility] DEPARTMENT [address] [address] PATHOLOGY AND GENOMIC MEDICINE [place] [id number] [place] [address] * Ferritin level (07/23/2018 4:37 PM DIRECTOR OF FIELD COORDINATION) Only the most recent of 2 results within the time period is included. Ferritin level 129 30 - 400 ng/mL [facility] Specimen Plasma specimen Performing Organization Address City/State/Zipcode Phone Number [facility] DEPARTMENT OF [address] [place] [address] PATHOLOGY AND GENOMIC MEDICINE [address] * IR PICC Placement (07/23/2018 10:52 AM DIRECTOR OF FIELD COORDINATION) Specimen Narrative Performed At Examination:IR PICC PLACEMENT [facility] Clinical history:"PANCREATITIS - ACUTE, PICC line placement for TPN" Comparison:There are no prior studies for comparison. Anesthesia:Lidocaine solution was injected into the involved tissues. Reference air kerma:1 mGy. Technique:The patient was prepared using sterile technique after signed, informed consent was obtained. Maximal sterile barrier technique was implemented. The right basilic vein was imaged sonographically and was found to be patent and appropriate for percutaneous access.Under real-time sonographic guidance, the vessel was accessed using a 21-gauge needle with real-time visualization of needle entry into the vessel.A sonographic image of the accessed vessel was obtained as permanent documentation. A microwire was inserted and advanced centrally.A peel-away sheath was placed over the wire.A 5 Belgian catheter was severed to 40 cm in length.The catheter was introduced [id number] and positioned using real-time fluoroscopic guidance with the catheter tip within the right atrium.The catheter was tested and found to function properly.The external portion of the catheter was sutured to the adjacent skin. Estimated blood loss:Less than 2 cc. Complications:None. Specimens removed:None. Assistants:None. IMPRESSION:A power-injectable, 5-Belgian, 40 cm in length peripherally inserted central catheter (PICC) was placed via the right basilic vein using image guidance and without incident as described above.The catheter is ready for routine use. Thank you for allowing us to participate in the care of your patient. [facility]-[id number] Procedure Note Hm Interface, Radiology Results Incoming - 07/23/2018 11:16 AM DIRECTOR OF FIELD COORDINATION Examination: IR PICC PLACEMENT Clinical history: "PANCREATITIS - ACUTE, PICC line placement for TPN" Comparison: There are no prior studies for comparison. Anesthesia: Lidocaine solution was injected into the involved tissues. Reference air kerma: 1 mGy. Technique: The patient was prepared using sterile technique after signed, informed consent was obtained. Maximal sterile barrier technique was implemented. The right basilic vein was imaged sonographically and was found to be patent and appropriate for percutaneous access. Under real-time sonographic guidance, the vessel was accessed using a 21-gauge needle with real-time visualization of needle entry into the vessel. A sonographic image of the accessed vessel was obtained as permanent documentation. A microwire was inserted and advanced centrally. A peel-away sheath was placed over the wire. A 5 Belgian catheter was severed to 40 cm in length. The catheter was introduced [id number] and positioned using real-time fluoroscopic guidance with the catheter tip within the right atrium. The catheter was tested and found to function properly. The external portion of the catheter was sutured to the adjacent skin. Estimated blood loss: Less than 2 cc. Complications: None. Specimens removed: None. Assistants: None. IMPRESSION: A power-injectable, 5-Belgian, 40 cm in length peripherally inserted central catheter (PICC) was placed via the right basilic vein using image guidance and without incident as described above. The catheter is ready for routine use. Thank you for allowing us to participate in the care of your patient. [facility]-[id number] Performing Organization Address City/State/Zipcode Phone Number [facility] [address] [place] [address] * US Guided Vascular Access (07/23/2018 10:52 AM DIRECTOR OF FIELD COORDINATION) Specimen Narrative Performed At Examination:US GUIDED VASCULAR ACCESS [facility] Clinical history:"PANCREATITIS - ACUTE, PICC line placement for TPN" Comparison:There are no prior studies for comparison. Anesthesia:Lidocaine solution was injected into the involved tissues. Reference air kerma:1 mGy. Technique:The patient was prepared using sterile technique after signed, informed consent was obtained. Maximal sterile barrier technique was implemented. The right basilic vein was imaged sonographically and was found to be patent and appropriate for percutaneous access.Under real-time sonographic guidance, the vessel was accessed using a 21-gauge needle with real-time visualization of needle entry into the vessel.A sonographic image of the accessed vessel was obtained as permanent documentation. A microwire was inserted and advanced centrally.A peel-away sheath was placed over the wire.A 5 Belgian catheter was severed to 40 cm in length.The catheter was introduced [id number] and positioned using real-time fluoroscopic guidance with the catheter tip within the right atrium.The catheter was tested and found to function properly.The external portion of the catheter was sutured to the adjacent skin. Estimated blood loss:Less than 2 cc. Complications:None. Specimens removed:None. Assistants:None. IMPRESSION:A power-injectable, 5-Belgian, 40 cm in length peripherally inserted central catheter (PICC) was placed via the right basilic vein using image guidance and without incident as described above.The catheter is ready for routine use. Thank you for allowing us to participate in the care of your patient. [facility]-[id number] Procedure Note Interface, Radiology Results Incoming - 07/23/2018 11:16 AM DIRECTOR OF FIELD COORDINATION Examination: US GUIDED VASCULAR ACCESS Clinical history: "PANCREATITIS - ACUTE, PICC line placement for TPN" Comparison: There are no prior studies for comparison. Anesthesia: Lidocaine solution was injected into the involved tissues. Reference air kerma: 1 mGy. Technique: The patient was prepared using sterile technique after signed, informed consent was obtained. Maximal sterile barrier technique was implemented. The right basilic vein was imaged sonographically and was found to be patent and appropriate for percutaneous access. Under real-time sonographic guidance, the vessel was accessed using a 21-gauge needle with real-time visualization of needle entry into the vessel. A sonographic image of the accessed vessel was obtained as permanent documentation. A microwire was inserted and advanced centrally. A peel-away sheath was placed over the wire. A 5 Belgian catheter was severed to 40 cm in length. The catheter was introduced [id number] and positioned using real-time fluoroscopic guidance with the catheter tip within the right atrium. The catheter was tested and found to function properly. The external portion of the catheter was sutured to the adjacent skin. Estimated blood loss: Less than 2 cc. Complications: None. Specimens removed: None. Assistants: None. IMPRESSION: A power-injectable, 5-Belgian, 40 cm in length peripherally inserted central catheter (PICC) was placed via the right basilic vein using image guidance and without incident as described above. The catheter is ready for routine use. Thank you for allowing us to participate in the care of your patient. [facility]-[id number] Performing Organization Address City/State/Zipcode Phone Number [facility] [address] [place] [address] * CBC hemogram (07/21/2018 5:09 PM DIRECTOR OF FIELD COORDINATION) Only the most recent of 2 results within the time period is included. WBC 5.6 4.5 - 11.0 k/uL [facility] RBC 4.46 4.40 - 6.00 m/uL [facility] HGB 13.3 (L) 14.0 - 18.0 g/dL [facility] HCT 41.5 41.0 - 51.0 % [facility] MCV 93.0 82.0 - 100.0 fL [facility] MCH 29.8 27.0 - 34.0 pg [facility] MCHC 32.0 31.0 - 37.0 g/dL [facility] RDW - SD 46.5 37.0 - 55.0 fL [facility] MPV 13.2 (H) 6.9 - 11.0 fL [facility] Platelet count 90 (L) 150 - 400 K/uL [facility] Nucleated RBC 0.00 /100 WBC [facility] Specimen Blood Performing Organization Address City/[facility]/Zipcode Phone Number [facility] [place] [address] [place] [address] PATHOLOGY AND GENOMIC MEDICINE [facility] [address] * NM Hepatobiliary (HIDA Scan) (07/20/2018 7:28 PM DIRECTOR OF FIELD COORDINATION) Specimen Narrative Performed At [facility] PROCEDURE: NM HEPATOBILIARY (HIDA SCAN) INDICATION: RUQ paincholecystitis suspected, idiopathic pancreatitis COMPARISON: CT abdomen and pelvis 07/19/2018 TECHNIQUE: The patient was injected with 5 mCi of [id number] followed by dynamic imaging of the abdomen for 50 minutes. FINDINGS: There is physiological hepatic uptake and biliary excretion of radiotracer into the small bowel with prompt gallbladder filling. IMPRESSION: No scintigraphic evidence of acute cholecystitis or common bile duct obstruction. HDLEE Procedure Note Interface, Radiology Results Incoming - 07/20/2018 7:39 PM DIRECTOR OF FIELD COORDINATION PROCEDURE: NM HEPATOBILIARY (HIDA SCAN) INDICATION: RUQ pain cholecystitis suspected, idiopathic pancreatitis COMPARISON: CT abdomen and pelvis 07/19/2018 TECHNIQUE: The patient was injected with 5 mCi of [id number] followed by dynamic imaging of the abdomen for 50 minutes. FINDINGS: There is physiological hepatic uptake and biliary excretion of radiotracer into the small bowel with prompt gallbladder filling. IMPRESSION: No scintigraphic evidence of acute cholecystitis or common bile duct obstruction. HMHDLEE Performing Organization Address City/[facility]/Zipcode Phone Number [facility] [address] [place] [address] * CT Abdomen Pelvis W Contrast (07/19/2018 3:14 PM DIRECTOR OF FIELD COORDINATION) Specimen Narrative Performed At EXAMINATION:CT ABDOMEN PELVIS W CONTRAST [facility] CLINICAL HISTORY:Epigastric pain and tenderness TECHNIQUE: Multiple axial images of the abdomen and pelvis were obtained following intravenous administration of iodinated contrast. Sagittal and coronal computerized reformatted images were also obtained.Automatic exposure control or iterative reconstruction techniques used to reduce dose. COMPARISON:07/10/2018 Impression: 1.There is increased degree of gastric antral wall thickening with circumferential area of low density with wall thickness of 2.8 cm; there is also adjacent low density involving the head of the pancreas measuring 3 cm and the uncinate process. These findings have progressed since prior study. Gastritis/ulcer with serosal extension of inflammatory or infectious fluid could be considered. Alternatively, pancreatitis and pseudocyst formation and adjacent gastric inflammation could also be considered. Clinical correlation recommended. 2.Otherwise, solid organs of upper abdomen appears stable. Bowel gas pattern is nonobstructive. Diverticulosis of the colon without diverticulitis. No appendicitis noted. Extensive postoperative changes of the lumbar and sacral spine. No free air noted. [facility]-[id number] Procedure Note Interface, Radiology Results Incoming - 07/19/2018 3:36 PM DIRECTOR OF FIELD COORDINATION EXAMINATION: CT ABDOMEN PELVIS W CONTRAST CLINICAL HISTORY: Epigastric pain and tenderness TECHNIQUE: Multiple axial images of the abdomen and pelvis were obtained following intravenous administration of iodinated contrast. Sagittal and coronal computerized reformatted images were also obtained.Automatic exposure control or iterative reconstruction techniques used to reduce dose. COMPARISON: 07/10/2018 Impression: 1. There is increased degree of gastric antral wall thickening with circumferential area of low density with wall thickness of 2.8 cm; there is also adjacent low density involving the head of the pancreas measuring 3 cm and the uncinate process. These findings have progressed since prior study. Gastritis/ulcer with serosal extension of inflammatory or infectious fluid could be considered. Alternatively, pancreatitis and pseudocyst formation and adjacent gastric inflammation could also be considered. Clinical correlation recommended. 2. Otherwise, solid organs of upper abdomen appears stable. Bowel gas pattern is nonobstructive. Diverticulosis of the colon without diverticulitis. No appendicitis noted. Extensive postoperative changes of the lumbar and sacral spine. No free air noted. [facility]-[id number] Performing Organization Address City/State/Zipcode Phone Number [facility] [address] [place] [address] * Amylase level (07/19/2018 1:25 PM DIRECTOR OF FIELD COORDINATION) Only the most recent of 9 results within the time period is included. Amylase 133 (H) 13 - 73 U/L [facility] Specimen Plasma specimen Performing Organization Address City/State/Zipcode Phone Number [facility] [place] [address] [place] [address] PATHOLOGY AND [facility] MEDICINE [facility] [address] * D-dimer (07/13/2018 11:40 AM DIRECTOR OF FIELD COORDINATION) Pathologist [facility] D-dimer 2.96 (H) 0.00 - 0.40 ug/mL [place] Comment: [facility] Units are ug/ml Fibrinogen [facility] Equivalent Unit. When combined with low clinical probability, D-dimer results of less than 0.5 ug/ml FEU have a good negativepredictive value in excluding PE or DVT. For D-dimer results greater than 0.5ug/ml FEU further testing is indicated if PE or DVT is suspectedclinically. Elevated D-dimer results have been reported in DVT, PE, and DIC cases and may indicate the presence of a clot. D-dimer results may be elevated due to old age, , inflammatory diseases, trauma, post-operative states, sepsis, and malignancies. Specimen Blood Performing Organization Address [facility] Centercode Phone Number [facility] [place] [address] AND [facility] [address] * Anti smooth muscle Ab titer (07/12/2018 3:10 AM DIRECTOR OF FIELD COORDINATION) Pathologist [facility] Anti smooth 1:40 (A) Not-Detected [place] muscle Ab titer [facility] Specimen Blood Performing Organization Address City/[facility]/Zipcode Phone Number [facility] DEPARTMENT OF [address] [place] [address] PATHOLOGY AND [facility] MEDICINE [address] * Anti smooth muscle Ab screen (07/12/2018 3:10 AM DIRECTOR OF FIELD COORDINATION) Pathologist [facility] Anti smooth Detected (A) Not-Detected [place] muscle Ab [facility] Specimen Blood Performing Organization Address City/[facility]/Zipcode Phone Number [facility] DEPARTMENT OF [address] [place] [address] PATHOLOGY AND [facility] MEDICINE [address] * Total iron binding capacity (07/12/2018 3:10 AM DIRECTOR OF FIELD COORDINATION) [facility] Iron level 178 (H) 59 - 158 ug/dL [facility] Iron binding 321 260 - 460 ug/dL [facility] % Saturation 55.5 (H) 20.0 - 40.0 % [facility] Specimen Plasma specimen Performing Organization Address City/[facility]/Zipcode Phone Number [facility] [id number] [place] [address] PATHOLOGY AND GENOMIC MEDICINE [address] * Hepatitis B surface Ab, quantitative (07/12/2018 3:10 AM DIRECTOR OF FIELD COORDINATION) [facility] Hepatitis B <3.10 IU/L [facility] surface Ab Comment: The anti-HBs is less than 10 IU/L and is therefore negative. There is no evidence of recovery from hepatitis B infection or evidence of antibody response to HBV vaccination. An anti-HBs result greater than or equal to 10 IU/L implies immunity. For post-vaccination antibody testing guidelines for the general public refer to MMWR July 15, 2005/Vol. 54(No. 16);-23, and for healthcare workers refer to MMWR July 12, 2013/Vol. 62(No. 10);-. Reference Interval: anti-HBs 9.99 IU/L or less ....... Negative 10.00 IU/L or greater .... Positive Results greater than 1,000.00 IU/L are reported as greater than 1,000.00 IU/L. This assay should not be used for blood donor screening, associated re-entry protocols, or for screening Human Cell, Tissues and Cellular and Tissue-Based Products (HCT/P). Performed by [facility], [address], [place] [id number] [email or web address], Mauricio Jama MD - Lab. Director Specimen Serum Performing Organization Address [facility]/Zipcode Phone Number [facility] [address] [place] [address] [facility] [address] [place] [address] * Anti mitochondria screen (07/12/2018 3:10 AM DIRECTOR OF FIELD COORDINATION) Pathologist [facility] Anti Not Detected Not-Detected [facility] Specimen Blood Performing Organization Address City/[facility]/Zipcode Phone Number [facility] [place] [address] PATHOLOGY AND [facility] MEDICINE [address] * Ceruloplasmin level (07/12/2018 3:10 AM DIRECTOR OF FIELD COORDINATION) [facility] Ceruloplasmin 16 15 - 30 mg/dL [facility] Specimen Plasma specimen Performing Organization Address City/[facility]ercode Phone Number [facility] [place] [address] PATHOLOGY AND GENOMIC MEDICINE [address] * Alpha fetoprotein (07/12/2018 3:10 AM DIRECTOR OF FIELD COORDINATION) [facility] Alpha 3.4 0.0 - 8.3 ng/mL [place] fetoprotein Comment: UATSDIN The Viirdiana 8000 AFP immunoassay HOSPITAL was used. Results obtained with different assay methods or kits should not be used interchangeably and may be different. Specimen Serum Performing Organization Address [facility] Centercode Phone Number [facility] [place] [address] PATHOLOGY AND [facility] MEDICINE [address] * Hepatitis acute panel (07/12/2018 3:10 AM DIRECTOR OF FIELD COORDINATION) [facility] Hepatitis A IgM Non-reactive Non-reactive [facility] Hepatitis B Non-reactive Non-reactive [place] core IgM [facility] Hepatitis B Non-reactive Non-reactive [place] surface Ag [facility] Hepatitis C Ab Non-reactive Non-reactive [facility] Specimen Serum Performing Organization Address City/[facility] Centercomn Phone Number [facility] [place] [address] PATHOLOGY AND GENOMIC MEDICINE [address] * HARSHA (07/12/2018 3:10 AM DIRECTOR OF FIELD COORDINATION) [facility] HARSHA screen Negative Negative [facility] Specimen Blood Performing Organization Address City/[facility]ercode Phone Number [facility] [place] [address] PATHOLOGY AND [facility] MEDICINE [address] * US Abdomen Complete (07/11/2018 3:45 PM DIRECTOR OF FIELD COORDINATION) Only the most recent of 2 results within the time period is included. Specimen Narrative Performed At EXAM: US ABDOMEN COMPLETE [facility] CLINICAL DATA:Cirrhosis or Fatty Liver, Nauseavomiting, pancreatitis COMPARISON: CT abdomen pelvis same date FINDINGS: A complete abdominal ultrasound was performed. LIVER: Liver is cirrhotic without focal lesions or signs aren't hepatic biliary dilation. GALBLADDER/CBD:The gallbladder is nondistended with normal wall thickness. No gallstones are present. There is no pericholecystic fluid. The common bile duct is normal in diameter at 4.4 mm PORTAL VEIN: .The main portal vein is patent with color Doppler flow. RETROPERITONEUM:Pancreas not visualized due to obscuring bowel gas. The visualized IVC and abdominal aorta are unremarkable. SPLEEN: The spleen is upper normal limits in length at 12.8 cm. KIDNEYS:The kidneys are normal in size and echogenicity without stones or hydronephrosis. OTHER: There is no ascites. There is no pleural effusion. IMPRESSION: No cholelithiasis. Cirrhosis without focal lesions. [facility]-[id number] Procedure Note Interface, Radiology Results Incoming - 07/11/2018 4:06 PM DIRECTOR OF FIELD COORDINATION EXAM: US ABDOMEN COMPLETE CLINICAL DATA: Cirrhosis or Fatty Liver, Nausea vomiting, pancreatitis COMPARISON: CT abdomen pelvis same date FINDINGS: A complete abdominal ultrasound was performed. LIVER: Liver is cirrhotic without focal lesions or signs aren't hepatic biliary dilation. GALBLADDER/CBD: The gallbladder is nondistended with normal wall thickness. No gallstones are present. There is no pericholecystic fluid. The common bile duct is normal in diameter at 4.4 mm PORTAL VEIN: .The main portal vein is patent with color Doppler flow. RETROPERITONEUM: Pancreas not visualized due to obscuring bowel gas. The visualized IVC and abdominal aorta are unremarkable. SPLEEN: The spleen is upper normal limits in length at 12.8 cm. KIDNEYS: The kidneys are normal in size and echogenicity without stones or hydronephrosis. OTHER: There is no ascites. There is no pleural effusion. IMPRESSION: No cholelithiasis. Cirrhosis without focal lesions. [facility]-[id number] Performing Organization Address City/State/Zipcode Phone Number [facility] [address] [place] [address] * MRI Abdomen W Wo Contrast (05/08/2018 10:17 PM CDT) Specimen Narrative [facility]formed At [facility] EXAM[facility]ATION:MRI ABDOMEN W WO CONTRAST CLINICAL HISTORY:abdomen pain. TECHNIQUE: Multisequence multiplanar MR imaging of the abdomen was performed before and then following the intravenous administration of gadolinium contrast. COMPARISON:None. FINDINGS: Images are degraded by respiratory artifact with repeat sequences attempted. LIVER:Fatty infiltration of the liver is present. Postcontrast images are degraded by motion but no hyper arterial enhancement of the liver is identified. No suspicious mass or washout. BILIARY:Gallbladder is unremarkable without calculus or wall thickening. No pericholecystic infiltration. Common bile duct is normal in caliber and there is no intrahepatic biliary dilatation. SPLEEN:Normal. Homogeneous in enhancement. PANCREAS:Pancreatic parenchyma is homogeneous without differential enhancement. There is mild dilatation of the distal pancreatic duct to the ampulla at 4-5 mm (series 8 image 18). In addition, there are 2 well-circumscribed fluid containing lesion about the pancreas, a 2.1 cm lesion anteriorly about the neck (series 13 image 20), and the other 1.7 cm about the uncinate process (image 24). Both have areas of low dependent signal intensity and have low-density correlates on CT. No connection is identified to the duodenum to suggest diverticula. Following contrast, these have been peripheral enhancement without septa or nodularity. Given inflammation about the pancreas on prior, findings may reflect changes of pancreatitis potentially more remote than acute presentation. Follow-up in 6 months is recommended if not evaluated by other means such as endoscopic ultrasound. Extensive peripancreatic infiltration between the gastric antrum and pancreas on CT of 05/02/2018 has markedly diminished. ADRENALS:Normal. KIDNEYS:Kidneys are without mass or hydronephrosis. BOWEL:Unremarkable MR appearance. VASCULAR:Unremarkable LYMPH NODES:No enlarged by criteria lymph nodes are identified OTHER:. Extensive artifact is noted through the thoracolumbar spine from fixation hardware. No ascites is identified. Bowel is unremarkable without wall thickening. IMPRESSION: 2 nonaggressive cystic lesions are noted about the pancreas with markedly diminished infiltration about the pancreatic head, findings suggesting probable pancreatitis and small pseudocysts. Marked thickening of the stomach and proximal duodenum on CT of 05/02/2018 have also diminished with resolution of peripancreatic inflammatory changes. Consider endoscopic ultrasound versus short-term follow-up MR in 6 months noting dilatation of the distal pancreatic duct as described. Please see report. Thank you for allowing us to participate in the care of your patient. [facility]-[id number] Procedure Note Hm Interface, Radiology Results Incoming - 05/08/2018 11:16 PM CDT EXAMINATION: MRI ABDOMEN W WO CONTRAST CLINICAL HISTORY: abdomen pain. TECHNIQUE: Multisequence multiplanar MR imaging of the abdomen was performed before and then following the intravenous administration of gadolinium contrast. COMPARISON: None. FINDINGS: Images are degraded by respiratory artifact with repeat sequences attempted. LIVER: Fatty infiltration of the liver is present. Postcontrast images are degraded by motion but no hyper arterial enhancement of the liver is identified. No suspicious mass or washout. BILIARY: Gallbladder is unremarkable without calculus or wall thickening. No pericholecystic infiltration. Common bile duct is normal in caliber and there is no intrahepatic biliary dilatation. SPLEEN: Normal. Homogeneous in enhancement. PANCREAS: Pancreatic parenchyma is homogeneous without differential enhancement. There is mild dilatation of the distal pancreatic duct to the ampulla at 4-5 mm (series 8 image 18). In addition, there are 2 well- circumscribed fluid containing lesion about the pancreas, a 2.1 cm lesion anteriorly about the neck (series 13 image 20), and the other 1.7 cm about the uncinate process (image 24). Both have areas of low dependent signal intensity and have low-density correlates on CT. No connection is identified to the duodenum to suggest diverticula. Following contrast, these have been peripheral enhancement without septa or nodularity. Given inflammation about the pancreas on prior, findings may reflect changes of pancreatitis potentially more remote than acute presentation. Follow-up in 6 months is recommended if not evaluated by other means such as endoscopic ultrasound. Extensive peripancreatic infiltration between the gastric antrum and pancreas on CT of 05/02/2018 has markedly diminished. ADRENALS: Normal. KIDNEYS: Kidneys are without mass or hydronephrosis. BOWEL: Unremarkable MR appearance. VASCULAR: Unremarkable LYMPH NODES: No enlarged by criteria lymph nodes are identified OTHER: . Extensive artifact is noted through the thoracolumbar spine from fixation hardware. No ascites is identified. Bowel is unremarkable without wall thickening. IMPRESSION: 2 nonaggressive cystic lesions are noted about the pancreas with markedly diminished infiltration about the pancreatic head, findings suggesting probable pancreatitis and small pseudocysts. Marked thickening of the stomach and proximal duodenum on CT of 05/02/2018 have also diminished with resolution of peripancreatic inflammatory changes. Consider endoscopic ultrasound versus short-term follow-up MR in 6 months noting dilatation of the distal pancreatic duct as described. Please see report. Thank you for allowing us to participate in the care of your patient. [facility]-[id number] Performing Organization Address City/State/Zipcode Phone Number [facility] [address] [place] [address] * MRI Pelvis W Wo Contrast (05/08/2018 10:16 PM CDT) Specimen Narrative Performed At EXAMINATION:MRI PELVIS W WO CONTRAST [facility] CLINICAL HISTORY:ABDOMEN PAIN TECHNIQUE: Multiplanar multisequence MR images of the pelvis were obtained pre- and post intravenous administration of Gadolinium. COMPARISON:None. FINDINGS: The urinary bladder is unremarkable apart from very mild trabeculation of the wall with incomplete distention noted. Prostate is unremarkable with well-defined homogeneity of the peripheral zone and without findings of BPH; it measures 3.7 x 5.1 x 3.4 cm. Seminal vesicles are normal. Bowel is unremarkable in the pelvis. No wall thickening or inflammatory changes are identified. No free fluid is identified in the pelvis. There is no pathological adenopathy. There is mildly prominent fat about the spermatic cords, greater on the left, but no hernia is identified in the pelvis. There is extensive artifact through the lumbosacral spine from spinal fixation. Accounting for the artifact, osseous pelvis is unremarkable without fracture or edema. There is diffuse subcutaneous edema more prominent on the right than left lateral, potentially due to patient positioning. No collection is identified. Additional posterior subcutaneous edema as well seen superficially about the lumbosacral junction. IMPRESSION: Unremarkable MR of the pelvis. No acute pathology or cause for pain. Incidental findings as described. [facility]-[id number] Procedure Note Interface, Radiology Results Incoming - 05/08/2018 10:58 PM CDT EXAMINATION: MRI PELVIS W WO CONTRAST CLINICAL HISTORY: ABDOMEN PAIN TECHNIQUE: Multiplanar multisequence MR images of the pelvis were obtained pre- and post intravenous administration of Gadolinium. COMPARISON: None. FINDINGS: The urinary bladder is unremarkable apart from very mild trabeculation of the wall with incomplete distention noted. Prostate is unremarkable with well- defined homogeneity of the peripheral zone and without findings of BPH; it measures 3.7 x 5.1 x 3.4 cm. Seminal vesicles are normal. Bowel is unremarkable in the pelvis. No wall thickening or inflammatory changes are identified. No free fluid is identified in the pelvis. There is no pathological adenopathy. There is mildly prominent fat about the spermatic cords, greater on the left, but no hernia is identified in the pelvis. There is extensive artifact through the lumbosacral spine from spinal fixation. Accounting for the artifact, osseous pelvis is unremarkable without fracture or edema. There is diffuse subcutaneous edema more prominent on the right than left lateral, potentially due to patient positioning. No collection is identified. Additional posterior subcutaneous edema as well seen superficially about the lumbosacral junction. IMPRESSION: Unremarkable MR of the pelvis. No acute pathology or cause for pain. Incidental findings as described. [facility]-[id number] Performing Organization Address City/State/Zipcode Phone Number [facility] [address] [place] [address] * CT Abdomen Pelvis Wo Contrast (05/02/2018 10:54 PM CDT) Specimen Narrative Performed At CT ABDOMEN PELVIS WO CONTRAST [facility] CLINICAL INDICATION:ruq abd paindiffuse tendernessno contrast h o minimal change dz TECHNIQUE:Multidetector CT of the abdomen and pelvis was performed without intravenous contrast with multiplanar reconstructions. CT imaging was performed with iterative reconstruction technique and/or automated exposure control to reduce radiation dose. COMPARISON:None FINDINGS: Please note, the lack of intravenous and oral contrast limits evaluation of the abdominal and pelvic viscera. LOWER THORAX:Clear. LIVER:There is hepatic steatosis. BILIARY:Normal. SPLEEN:Aside from punctate calcified granulomas, the spleen is normal. PANCREAS:There is edema located between the pancreatic head and adjacent duodenum. No focal pancreatic lesion is identified. ADRENALS:Normal. KIDNEYS:No mass or hydronephrosis. GI: There is bowel wall thickening of the pylorus and first segment of the duodenum with adjacent mesenteric edema. The large and small bowel are normal in caliber. There is mild colonic diverticulosis. The appendix is normal. VASCULAR:Unremarkable LYMPH NODES:No enlarged lymph nodes in the abdomen or pelvis. PELVIS:There is circumferential wall thickening of the urinary bladder, likely secondary to incomplete distention. BONES:There are no acute osseous abnormalities. There is height loss of multiple vertebral bodies with extensive posterior fusion of the thoracolumbar spine. OTHER:There is no ascites or pneumoperitoneum. There are small, fat-containing right and left inguinal hernias. IMPRESSION: Wall thickening of the pylorus and duodenum with edema located between the duodenum and pancreatic head. While these findings are likely related to peptic ulcer disease, groove pancreatitis is also a possibility. Laboratory and clinical correlation is recommended to differentiate between these etiologies. Further evaluation of the GI tract could be obtained with an EGD. [facility]-[id number] Procedure Note Interface, Radiology Results Incoming - 05/02/2018 11:[address] ABDOMEN PELVIS WO CONTRAST CLINICAL INDICATION: ruq abd pain diffuse tenderness no contrast h o minimal change dz TECHNIQUE: Multidetector CT of the abdomen and pelvis was performed without intravenous contrast with multiplanar reconstructions. CT imaging was performed with iterative reconstruction technique and/or automated exposure control to reduce radiation dose. COMPARISON: None FINDINGS: Please note, the lack of intravenous and oral contrast limits evaluation of the abdominal and pelvic viscera. LOWER THORAX: Clear. LIVER: There is hepatic steatosis. BILIARY: Normal. SPLEEN: Aside from punctate calcified granulomas, the spleen is normal. PANCREAS: There is edema located between the pancreatic head and adjacent duodenum. No focal pancreatic lesion is identified. ADRENALS: Normal. KIDNEYS: No mass or hydronephrosis. GI: There is bowel wall thickening of the pylorus and first segment of the duodenum with adjacent mesenteric edema. The large and small bowel are normal in caliber. There is mild colonic diverticulosis. The appendix is normal. VASCULAR: Unremarkable LYMPH NODES: No enlarged lymph nodes in the abdomen or pelvis. PELVIS: There is circumferential wall thickening of the urinary bladder, likely secondary to incomplete distention. BONES: There are no acute osseous abnormalities. There is height loss of multiple vertebral bodies with extensive posterior fusion of the thoracolumbar spine. OTHER: There is no ascites or pneumoperitoneum. There are small, fat-containing right and left inguinal hernias. IMPRESSION: Wall thickening of the pylorus and duodenum with edema located between the duodenum and pancreatic head. While these findings are likely related to peptic ulcer disease, groove pancreatitis is also a possibility. Laboratory and clinical correlation is recommended to differentiate between these etiologies. Further evaluation of the GI tract could be obtained with an EGD. [facility]-[id number] Performing Organization Address City/State/Zipcode Phone Number [facility] [address] [place] [address] * Creatine kinase, total (CPK) (05/02/2018 10:10 PM CDT) Only the most recent of 2 results within the time period is included. Creatine kinase 32 (L) 39 - 308 U/L [facility] DEPARTMENT OF PATHOLOGY AND GENOMIC MEDICINE Specimen Plasma specimen Performing Organization Address City/[facility] Cent[facility]ode Phone Number [facility] [place] [address] [facility]. [place] [address] PATHOLOGY AND [facility] * Estimated GFR (03/14/2018 5:50 AM CDT) Only the most recent of 8 results within the time period is included. GFR Non Af Amer 68 mL/min/1.73 m2 [facility] DEPARTMENT OF PATHOLOGY AND GENOMIC MEDICINE GFR Af Amer 82 mL/min/1.73 m2 [facility] DEPARTMENT Comment: OF PATHOLOGY Chronic kidney disease: <60 AND GENOMIC mL/min/1.73m2 MEDICINE Kidney failure: <15 mL/min/1.73m2 The estimated GFR is calculated from the IDMS-traceable Modification of Diet in Renal Disease Equation. The accuracy of the calculation is poor when the creatinine is normal. Calculated values >90 mL/min/1.73m2 are not reported. This equation has not been validated in children (<18 years), women, the elderly (>70 years), or ethnic groups other than Caucasians and Americans. Specimen Plasma specimen Performing Organization Address [facility] Phone Number [facility] [place] [place] [address] [facility] [place] [address] PATHOLOGY AND [facility] * Vitamin D 25 hydroxy level (03/14/2018 5:50 AM CDT) Vitamin D, 36.1 30.0 - 150.0 ng/mL [facility] DEPARTMENT 25-hydroxy Comment: OF PATHOLOGY This assay reports the sum of AND GENOMIC 25-hydroxy vitamin D3 and MEDICINE 25-hydroxy vitamin D2. Reference range: 0-17 years: Deficiency: less than 20ng/mL Optimum level: greater than or equal to 20 ng/mL. 18 years and older: Deficiency: less than 20ng/mL Insufficiency: 20-29 ng/mL Optimum Level: 30-80 ng/mL The assay reportable range is 3.4155.9 ng/mL. Levels higher than 150 ng/mL may be associated with toxicity. If toxicity is clinically suspected and the reported result is >155.9 ng/mL,contact lab for alternative methods to obtain a definitivelevel. If separate quantitation of 25-hydroxy vitamin D3 and 25-hydroxy vitamin D2 is needed, please contact lab for alternative methods. Specimen Blood Performing Organization Address [facility]/Zipcode Phone Number [facility] DEPARTMENT OF [address] [place] [address] PATHOLOGY AND GENOMIC MEDICINE * Cv ecg exercise stress (nuclear or echo) (03/09/2018 11:31 AM CDT) Resting HR 65 [facility] MUSE Resting BP 121 H MUSE Peak MET 1.0 [facility] MUSE Achieved Protocol Name Gonzalez [facility] MUSE Time in 00:01:00 [facility] MUSE Exercise Phase Max Systolic BP 127 H MUSE Max Diastolic 78 [facility] MUSE BP Max Heart Rate 123 H MUSE Max Predicted 159 [facility] MUSE Heart Rate Target HR (220 - Age)*85% [facility] MUSE Formula Test Indication ANGINA [facility] MUSE Stress Test ---Waveform interpreted [place] [facility] [place]ression report associated with image study. No interpretation is provided as part of this Stress ECG report.---- Target HR 135.15 bpm [facility] MUSE Specimen Performing Organization Address [facility] Phone Number [facility] MUSE [address] [place] [address] * Myocardial perfusion (03/09/2018 11:31 AM CDT) Pathologist [facility] Target HR 135.15 bpm [facility] Resting HR 65 BPM [facility] Resting BP 121/77 mmHg [facility] Post Peak HR 123 bpm [facility] Percent HR 91.01 % [facility] Post Peak BP 127/78 mmHg [facility] Specimen Narrative Performed At [facility] There are no perfusion defects. The study is normal. Study Quality: good. SPECT images demonstrate a normal perfusion study. Normal left ventricular systolic function. Normal left ventricular systolic function. Normal left ventricular perfusion. Normal left ventricular perfusion. Performing Organization Address [facility]/Zipcode Phone Number [facility] [address] [place] [address] * Cyclosporine A level (03/09/2018 1:10 AM CDT) Cyclosporine <30 ng/mL [facility] DEPARTMENT Comment: OF PATHOLOGY Unless administered by AND GENOMIC continuous IV drip, collect a MEDICINE purple top tube just before the next dose. Therapeutic range of approximately 100-500 varies mainly with type of transplant, use of other immunosuppressive agents, and evidence of toxicity or rejection. Test performed using [employer] chemiluminescent microparticle immunoassay for Cyclosporine on the [employer] i System. Specimen Blood Performing Organization Address City/State/Zipcode Phone Number [place] [phone] [place] [address] PATHOLOGY AND GENOMIC MEDICINE * IgG subclasses (03/07/2018 4:15 AM CDT) Immunoglobulin 357 240 - 1,118 mg/dL [facility] G subclass 1 Comment: REFERENCE INTERVAL: Immunoglobulin G Subclass 1 Access complete set of age- and/or gender-specific reference intervals for this test in the [facility] ([facility] [facility]). Immunoglobulin 167 124 - 549 mg/dL [facility] G subclass 2 Comment: REFERENCE INTERVAL: Immunoglobulin G Subclass 2 Access complete set of age- and/or gender-specific reference intervals for this test in the [facility] ([employer]). Immunoglobulin 11 (L) 21 - 134 mg/dL [facility] G subclass 3 Comment: REFERENCE INTERVAL: Immunoglobulin G Subclass 3 Access complete set of age- and/or gender-specific reference intervals for this test in the [facility] ([employer]). Immunoglobulin 23 1 - 123 mg/dL [facility] G subclass 4 Comment: The total IgG (mg/dL) can be derived by the sum of the subclasses IgG1, IgG2, IgG3 and IgG4 values. However, a confirmatory and more precise total IgG is available by the nephelometric method of total IgG (Test # [id number]). REFERENCE INTERVAL: Immunoglobulin G Subclass 4 Access complete set of age- and/or gender-specific reference intervals for this test in the [facility] ([facility]). Performed by [facility], [address], [place] [id number] [email or web address], Mauricio Jama MD - Lab. Director Specimen Serum Performing Organization Address City/[facility]/Zipcode Phone Number [facility] [address] [place] [address] * Echocardiogram complete w contrast and 3D if needed (03/06/2018 9:11 AM CDT) AoV Area, Vmax 2.19 cm2 [facility] AoV Area, VTI 2.52 cm2 [facility] AoV Mean PG 3.69 mmHg [facility] AoV Peak PG 7.29 mmHg [facility] AoV Vmax 1.35 m/s [facility] AoV VTI 0.24 m [facility] BSA Ashraf 0.00 m2 [facility] BSA 0.00 m2 [facility] IVS,d 1.15 cm [facility] IVS/LVPW,2D 1.06 [facility] LA Area d A4C 21.19 cm2 [facility] LV,d 4.44 cm [facility] LV EF,2D 78.04 % [facility] LV,s 2.68 cm [facility] LVOT area 3.23 cm2 [facility] LVOT Diam,S 2.03 cm [facility] LVOT Vmax 0.91 m/s [facility] LVOT VTI 0.19 m [facility] LVPWD,d 1.09 cm [facility] TR Vpeak 1.83 mm/s [facility] AR Press Half 332.04 ms [facility] Time MV E A ratio 1.03 mmHg [facility] TR pk grad 13.36 mmHg [facility] MR Vmax 1.93 m/s [facility] MR peak grad 14.87 mmHg [facility] E wave 278.69 msec [facility] decelartion time IVRT 110.73 msec [facility] MV Peak A Goran 0.57 m/s [facility] MV valve area p 2.72 cm2 [facility] 1/2 method MV Peak E Goran 0.59 m/s [facility] MV stenosis 80.82 ms [facility] pressure 1/2 time AV LVOT peak 3.33 mmHg [facility] gradient LV SYS VOL 26.43 ml [facility] LV ARRIAGA VOL 89.35 ml [facility] LV SV Teich 2D 62.92 ml [facility] LV Vol s Teich 26.43 ml [facility] PSAX BSA Haycock 0.00 m2 [facility] AoV Vmn 0.91 [facility] LV FS Teich 2D 39.66 [facility] MV AE ratio 0.97 [facility] AR slope 1.53 [facility] Ar Vmax 1.76 [facility] LA Ao Ratio 1.44 [facility] Mmode LV FS Cube 2D 39.66 [facility] LVOT Vmn 0.61 [facility] Pt Size 0.00 [facility] Pt Wt 0.00 [facility] Ao root annulus 3.58 cm [facility] Aov area Vmn 2.15 cm2 [facility] LA Vol d MOD 59.46 ml [facility] A4C LVOT mean grad 1.76 mmHg [facility] MAX Pred HR 158.70 [facility] 85 of MPHR 134.89 [facility] AR DT 1,144.96 msec [facility] AR pk grad 12.33 mmHg [facility] Calc MPHR 158.70 bpm [facility] LV SV Cube 2D 68.08 ml [facility] LV vol d cube 87.24 ml [facility] 2D LV vol s cube 19.16 ml [facility] 2D MV Decel slope 2.10 m/s2 [facility] Pred Exer Dur 8.51 [facility] R1 Pred METS R1 8.80 [facility] Velocity Ratio 0.67 m/s [facility] (V1/V2) EF 70.42 % [facility] E/A ratio 1.04 [facility] Specimen Narrative Performed At [facility] The left ventricle chamber size is normal. Left Ventricular ejection fraction is 60 - 65%. No pericardial effusion Performing Organization Address [facility] Phone Number [facility] [address] [place] [address] * Gram stain (03/05/2018 5:14 PM CDT) Pathologist [facility] Gram stain No WBC's or organisms seen. [facility] DEPARTMENT result Comment: OF PATHOLOGY Specimen Information AND GENOMIC Specimen Source: Urine MEDICINE Specimen Site: Urine, clean catch Specimen Urine - Urine, clean catch Performing Organization Address [facility] Phone Number [facility] DEPARTMENT OF [address] [place] [address] PATHOLOGY AND GENOMIC MEDICINE * Thyroid stimulating hormone (03/05/2018 12:25 PM CDT) Pathologist [facility] TSH 4.46 (H) 0.27 - 4.20 uIU/mL [facility] DEPARTMENT OF PATHOLOGY AND GENOMIC MEDICINE Specimen Plasma specimen Performing Organization Address City/[facility]/Zipcode Phone Number [facility] [address] [place] [address] PATHOLOGY AND GENOMIC MEDICINE * T4, free (03/05/2018 12:25 PM CDT) T4, free 1.4 0.9 - 1.7 ng/dL [facility] DEPARTMENT OF PATHOLOGY AND GENOMIC MEDICINE Specimen Plasma specimen Performing Organization Address City/[facility]/Zipcode Phone Number [facility] [place] [address] [place] [address] PATHOLOGY AND GENOMIC MEDICINE * B natriuretic peptide (03/05/2018 12:25 PM CDT) BNP 15 0 - 100 pg/mL [facility] DEPARTMENT OF PATHOLOGY AND GENOMIC MEDICINE Specimen Blood Performing Organization Address City/State/Zipcode Phone Number [facility] OF [address] [place] [phone] PATHOLOGY AND GENOMIC MEDICINE * ECG ED Preliminary Interpretation - NOT AN ORDER (03/05/2018 12:12 PM CDT) Narrative Performed At Justice Reynaga MD 03/06/20184:43 PM ECG ED Preliminary Interpretation - Not an Order Performed by: JUSTICE REYNAGA Authorized by: JUSTICE REYNAGA ECG reviewed by ED Physician in the absence of a kiln firer helper: yes Previous ECG: Previous ECG:Unavailable Interpretation: Interpretation: normal Rate: ECG rate:81 bpm ECG rate assessment: normal Rhythm: Rhythm: sinus rhythm QRS: QRS axis:Normal Conduction: Conduction: normal ST segments: ST segments:Normal T waves: T waves: normal * CRITICAL CARE (03/05/2018 12:12 PM CDT) Narrative Performed At Justice Renyaga MD 03/06/20184:43 PM Critical Care Performed by: JUSTICE REYNAGA Authorized by: JUSTICE REYNAGA Critical care provider statement: Critical care time (minutes):34 Critical care time was exclusive of:Separately billable procedures and treating other patients Critical care was necessary to treat or prevent imminent or life-threatening deterioration of the following conditions:Dehydration (Hyperkalemia, acute) Critical care was time spent personally by me on the following activities:Development of treatment plan with patient or surrogate, evaluation of patient's response to treatment, examination of patient, obtaining history from patient or surrogate, ordering and performing treatments and interventions, ordering and review of laboratory studies, pulse oximetry, re-evaluation of patient's condition, discussions with consultants, ordering and review of radiographic studies and review of old charts after 02/27/2018 Insurance Type Payer Benefit Subscriber ID Effective Phone Address Plan / Dates Group PPO BCBS BCBS xxxxxxxxxxxx 2018- CHOICE Present PPO/CHANTAL AKERS PPO Advance Directives Patient has advance care planning documents on file. For more information, maki e contact: Sascha Suarez [address] [place] [address]
--- OUTSIDE RECORDS SUMMARY | 2019-02-28 05:18 | XMS REPORT | Clinical Summary ---
Author Author NIKITA [employer] Organization [facility] Address Unknown Phone Unavailable Care Team Providers Care Travel Ticketing Reviewer Name Role Phone Yamilet Valera MD PCP Allergies Comments Active Allergy Reactions Severity Noted Date Skin is thin Adhesive 09/17/2018 Unknown reaction Penicillins Other (See 10/26/2015 Comments) Medications End Date Status Medication Sig Dispensed Refills Start Date Active albuterol HFA (VENTOLIN Inhale 1 puff 0 HFA) 90 mcg/actuation by mouth via inhaler inhaler every 6 (six) hours as needed for Wheezing. Active budesonide-formoterol Inhale 1 puff 0 (SYMBICORT) 160-4.5 by mouth via mcg/actuation inhaler inhaler as needed . Active levothyroxine (SYNTHROID, Take 100 mcg 0 LEVOTHROID) 100 MCG by mouth tablet Every morning on an empty stomach. Active predniSONE (DELTASONE) 20 Take 20 mg by 0 MG tablet mouth daily. Active omeprazole (PRILOSEC) 40 Take 40 mg by 0 MG capsule mouth daily. Active pregabalin (LYRICA) 100 Take 100 mg 0 MG capsule by mouth 2 (two) times daily. Active escitalopram oxalate Take 20 mg by 0 (LEXAPRO) 20 MG tablet mouth daily. Active rOPINIRole (REQUIP) 1 MG Take 2 mg by 0 tablet mouth nightly. Active dronabinol (MARINOL) 5 MG Take 5 mg by 0 capsule mouth 2 (two) times daily before meals. Active lisinopril Take 5 mg by 0 (PRINIVIL,ZESTRIL) 5 MG mouth daily. tablet Active cholecalciferol, vitamin Take 50,000 0 D3, (DECARA) 50,000 unit Units by capsule mouth every 30 (thirty) days. Active alendronate (FOSAMAX) 70 Take 70 mg by 0 MG tablet mouth every 7 days Take in the morning with a full glass of water, on an empty stomach, and do not take anything else by mouth or lie down for the next 30 min. . Active lipase/protease/amylase Take by mouth 0 (CREON ORAL) 3 (three) times daily. Active UNKNOWN Strontium 0 citrate . Active ferrous sulfate (IRON Take 27 mg by 0 ORAL) mouth. Active calcium carbonate/vitamin Take by 0 D3 (CALCIUM+D ORAL) mouth. Active acetylcysteine (NAC ORAL) Take by 0 mouth. 09/17/2018 Discontinued traMADol (ULTRAM) 50 mg Take 50 mg by 0 tablet mouth every 12 (twelve) hours as needed for Pain. 09/17/2018 Discontinued furosemide (LASIX) 40 MG Take 40 mg by 0 tablet mouth 2 (two) times daily. 09/17/2018 Discontinued pregabalin (LYRICA) 75 MG Take 75 mg by 0 capsule mouth 2 (two) times daily. 09/17/2018 Discontinued esomeprazole (NEXIUM) 20 Take 20 mg by 0 MG capsule mouth daily. 09/17/2018 Discontinued amitriptyline (ELAVIL) 50 Take 50 mg by 0 MG tablet mouth nightly. 09/17/2018 Discontinued predniSONE (DELTASONE) 10 Take 8 0 10/12/201 MG tablet tablets (80 7 mg total) by mouth daily. Active Problems Problem Noted Date Anasarca 10/06/2016 Abdominal wall cellulitis 02/10/2016 Minimal change disease 02/04/2016 Rectal bleeding 11/03/2015 Acute renal failure (ARF) 10/28/2015 Edema 10/26/2015 Encounters Care Team Description Date Type Specialty Jeremy Whipple MD 09/25/2018 Anesthesia Gastroenterology Event Artemio Crowell MD ERCP,PANCREATIC STENT 09/25/2018 Surgery Gastroenterology Artemio Crowell MD 09/25/2018 Hospital Gastroenterology Encounter Resource, [facility] Preadmit Phone 09/17/2018 Hospital Pre-Admission Testing Encounter after 02/27/2018 Immunizations Name Dates Previously Given Next Due Pneumococcal 10/27/2015 Polysaccharide (Pneumovax) Social History Date Tobacco Use Types Packs/Day Years Used Never Smoker Smokeless Tobacco: Never Used Alcohol Use Drinks/Week oz/Week Comments No none x 3 yrs Alcohol Habits Answer Date Recorded How often do you have a drink containing alcohol? Never 09/17/2018 How many drinks containing alcohol do you have on Not asked a typical day when you are drinking? How often do you have six or more drinks on one Not asked occasion? Sex Assigned at Date Recorded Not on file Industry Job Start Date Occupation Not on file Not on file Not on file Travel End Travel History Travel Start No recent travel history available. Last Filed Vital Signs Time Taken Vital Sign Reading 09/25/2018 3:15 PM TECHNOLOGY INSTRUCTOR Blood Pressure 113/64 09/25/2018 3:15 PM TECHNOLOGY INSTRUCTOR Pulse 55 09/25/2018 3:15 PM TECHNOLOGY INSTRUCTOR Temperature 36.5 C (97.7 F) 09/25/2018 3:15 PM TECHNOLOGY INSTRUCTOR Respiratory Rate 16 09/25/2018 3:15 PM TECHNOLOGY INSTRUCTOR Oxygen Saturation 97% - Inhaled Oxygen - Concentration 09/25/2018 1:15 PM TECHNOLOGY INSTRUCTOR Weight 77.2 kg (170 lb 4.8 oz) 09/25/2018 1:15 PM TECHNOLOGY INSTRUCTOR Height 167.6 cm (5' 6") 09/25/2018 1:15 PM TECHNOLOGY INSTRUCTOR Body Mass Index 27.49 Plan of Treatment Not on file Implants Device Identifier Shelf Expiration Date Model / Serial / Lot Implanted Type Area Manufactur er 11/28/2018 [id number] / / [id number] Advanix Straight Pancreatic Stent N/A: Pancreas [place] 7f X 12cm [employer] Implanted: Qty: 1 on 09/25/2018 by Artemio Crowell MD Procedures Comments Procedure Name Priority Date/Time Associated Diagnosis REPORT OF PROCEDURE - 09/25/2018 ENDOSCOPY URL 2:40 PM TECHNOLOGY INSTRUCTOR [place] ERCP Routine 09/25/2018 2:34 PM TECHNOLOGY INSTRUCTOR ERCP,STENT REMOVAL 09/25/2018 Loss of weight 2:00 PM TECHNOLOGY INSTRUCTOR Chronic pancreatitis, unspecified pancreatitis type (HCC) Abdominal pain, epigastric Special Needs (C-ARM, SPYGLASS) PROCEDURE W/ C-ARM 09/25/2018 Loss of weight 2:00 PM TECHNOLOGY INSTRUCTOR Chronic pancreatitis, unspecified pancreatitis type (HCC) Abdominal pain, epigastric Special Needs (C-ARM, SPYGLASS) ERCP,PANCREATIC STENT 09/25/2018 Loss of weight 2:00 PM TECHNOLOGY INSTRUCTOR Chronic pancreatitis, unspecified pancreatitis type (HCC) Abdominal pain, epigastric Special Needs (C-ARM, SPYGLASS) after 02/27/2018 Results * REPORT OF PROCEDURE - ENDOSCOPY URL (09/25/2018 2:40 PM TECHNOLOGY INSTRUCTOR) Narrative Performed At * [place] Endoscopic Retrograde Cholangiopancreatography (09/25/2018 2:34 PM TECHNOLOGY INSTRUCTOR) Specimen Narrative Performed At FINAL REPORT [facility] ERCP, 09/25/2018 Clinical History: Pancreatic sinus Impression: Intraoperative images are obtained. The radiologist is not present during the procedure. Fluoroscopy was not performed by the undersigned.Images are presented for interpretation at the completion of the procedure.Please refer to the procedure report for more details. Four images minimal with fluoroscopy time of 1.2 minutes demonstrating interrogation of the pancreatic duct. Signed: Lia Noguera MD Report Verified Date/Time:09/25/2018 15:16:44 Reading Location: [address] Radiology Reading Room Procedure Note Interface, External Ris In - 09/25/2018 3:18 PM TECHNOLOGY INSTRUCTOR FINAL REPORT ERCP, 09/25/2018 Clinical History: Pancreatic sinus Impression: Intraoperative images are obtained. The radiologist is not present during the procedure. Fluoroscopy was not performed by the undersigned. Images are presented for interpretation at the completion of the procedure. Please refer to the procedure report for more details. Four images minimal with fluoroscopy time of 1.2 minutes demonstrating interrogation of the pancreatic duct. Signed: Lia Noguera MD Report Verified Date/Time: 09/25/2018 15:16:44 Reading Location: [address] Radiology Reading Room Performing Organization Address City/State/Zipcode Phone Number [facility] after 02/27/2018 Insurance Payer Benefit Subscriber ID Type Phone Address Plan / Group BLUE CROSS/BLUE SHIELD BCBS PPO xxxxxxxxxxxx PPO [phone] [address] [place] [address] CHOICE Advance Directives For more information, please contact: [place] [id number] [place] [address] Date Inactivated Comments Code Status Date Activated 02/20/2016 1:55 PM Full Code 02/10/2016 12:25 PM This code status was determined by: Patient 02/09/2016 3:03 PM Full Code 02/04/2016 10:51 PM This code status was determined by: Patient 2015 8:28 PM Full Code 11/03/2015 3:24 PM This code status was determined by: Patient 10/30/2015 3:35 PM Full Code 10/26/2015 9:53 PM This code status was determined by: Patient
--- OUTSIDE RECORDS SUMMARY | 2019-02-28 05:18 | XMS REPORT ---
Author Author [facility] Address Unknown Phone Unavailable Care Team Providers Care Recycling Operations Manager Name Role Phone DEAN DINERO Unavailable Unavailable DR BHAKTI STEIN Unavailable Unavailable RADHA DUDLEY Unavailable Unavailable Payers Payer Name Policy Type Policy Number Effective Date Expiration Date Problems This patient has no known problems. Allergies, Adverse Reactions, Alerts Allergy Name Allergy Type Status Severity Reaction(s) Onset Date Inactive Date Treating Clinician Comments PCN DA Active NC 2018-05-22 00:00:00 Medications This patient has no known medications. Encounters Start Date/Time End Date/Time Encounter Type Admission Type Attending Clinicians Care Facility Care Department Encounter ID 2018-03-28 12:35:00 2018-07-08 23:59:00 Outpatient Isaias ROSETTE DEAN [facility] [id number] 2017-09-01 08:35:00 2017-10-09 23:59:00 Outpatient BHAKTI ROSALES [facility] [id number] 2017-05-16 09:20:00 2017-08-11 23:59:00 Outpatient BHAKTI ROSALES [facility] [id number] Results Test Description Test Time Test Comments Text Results Atomic Results Result Comments - XR ERCP 2019-02-06 10:04:00 Patient Name: LEDY VICTORIA Unit No: [id number] EXAMS: CPT CODE: [id number] XR ERCP [id number] LOCATION: T18 EXAM: - XR ERCP INDICATION: CHRONIC PANCREATITIS COMPARISON: ERCP May 22, 2018 TECHNIQUE: Fluoroscopic images of the biliary system obtained during ERCP. FINDINGS: Study limited by hardware of the spine. Contrast injected into the pancreatic duct. No filling defect seen. Fluoroscopy time: 54.1 seconds Images obtained: 4 Dose: 7.8778 mGy at 1004 Reported and signed by: Giancarlo Ayers MD CC: Tereso Lawson MD Technologist: Huong Chao, RT(R) Transcrpt Date/Tm/Trnsp: 02/06/2019 (1004) [email or web address] Orig Print D/T: S: 02/06/2019 (1008) [facility] NAME: LEDY VICTORIA [address] PHYS: [place] [address] : 1955 AGE: 63 SEX: M LOC: Z.END PHONE #: [phone] EXAM DATE: 02/05/2019 STATUS: [facility] FAX #: [phone] RADIOLOGY NO: PAGE 1 Signed Report [place], ERCP 2018-09-25 15:16:00 Reason for exam:->pancreatitis,abdominal pain FINAL REPORT ERCP, 09/25/2018 Clinical History: Pancreatic [...] interrogation of the pancreatic duct. Signed: Lia Nogu[place]ort Verified Date/Time: 09/25/2018 15:16:44 Reading Location: [address] Radiology Reading Room REAS FNA 2018-05-23 14:40:00 RUN DATE: 05/23/18 [facility] - Lab PAGE 1 RUN TIME: 1440 Specimen Inquiry RUN USER: INTERFACE PATIENT: LEDY VICTORIA LOC: DebraTIESHA U #: [id number] AGE/SX: 62/M ROOM: RE05/22/18[facility] DR: Tereso Lawson MD : 57 BED: DIS: STATUS: [facility] TLOC: SPEC #: [id number] RECD: 05/22/18 STATUS: MIKI HINKLE #: [id number] VITALIY: 05/22/[address] [facility] [address]: Tereso Lawson MD ENTERED: 05/22/18 SP TYPE: WOO FNA OTHR DR: ORDERED: CB, FNA CODES: [id number] - PANCREAS, NOS [id number] - PANCREAS, NOS NEEDLE [id number] - PANCREAS, NOS MASS, NOS [id number] - PANCREAS, NOS ASPIRATION, NOS ICD CODES: 782.2 - PROCEDURES: CB (05/22/18) FNA (05/22/18) TISSUES: A. PANCREAS, NOS - PANCREATIC FNA CPT CODES CPT CODE(S): 48576 , 96683 , , , , , FINAL DIAGNOSIS Pancreatic body mass, fine needle aspiration: BENIGN GLANDULAR CELLS BILE NO EVIDENCE OF SIGNIFICANT ATYPIA OR MALIGNANCY GROSS DESCRIPTION Pancreatic body mass FNA. Received is <1 mL of bloody fluid. One SurePath slide is prepared for Pap stain. One cell block is prepared. /chanell MICROSCOPIC DESCRIPTION Pancreatic body mass FNA. SurePath and cell block slides are reviewed. Slides show few clusters of benign glandular cells. There is background of bile and inflammatory cells. No evidence of significant atypia or malignancy. /cm Signed SIGNATURE ON FILE [place] 05/23/18 1440 END OF REPORT PANCREAS 2018-05-23 12:21:00 RUN DATE: 05/23/18 [facility] PAGE 1 RUN TIME: 1222 Specimen Inquiry RUN USER: INTERFACE PATIENT: LEDY VICTORIA LOC: CARTER U #: [id number] AGE/SX: 62/M ROOM: RE05/22/18REG DR: Tereso Lawson MD : 57 BED: DIS: STATUS: DEP [facility] TLOC: SPEC #: [id number] RECD: 05/22/18 STATUS: MIKI LOPEZ #: [id number] VITALIY: 05/22/[address] [facility] [address]: Tereso Lawson MD ENTERED: 05/22/18 SP TYPE: PANCREAS OTHR DR: ORDERED: SURG PATH LVL 5 CODES: K78365 - PANCREAS, NOS [id number] - PANCREAS, NOS BIOPSY, NOS [id number] - BLOOD, NOS PROCEDURES: SURG PATH LVL 5 (05/22/18) TISSUES: A. PANCREAS, NOS - PANCREATIC BODY BX CONSULTATION Dr. Cohen has reviewed this case and agrees with the diagnosis. CPT CODES CPT CODE(S): 71221 , , , , , , FINAL DIAGNOSIS Pancreas, body, biopsy: BLOOD SEE COMMENTS GROSS DESCRIPTION Pancreatic body mass biopsy. The specimen consists of multiple pieces of bloody string-like tissue core fragments measuring aggregate 1.5 x 1.2 x 0.1 cm. Entirely submitted as A1. /tc/cm MICROSCOPIC DESCRIPTION Pancreatic body mass biopsy. Sections show cores of blood clot with minute fragments of colonic and glandular epithelium that most likely represents contaminnants. /cm CONTINUED ON NEXT PAGE RUN DATE: 05/23/18 [facility] - Lab PAGE 2 RUN TIME: 1222 Specimen Inquiry RUN USER: INTERFACE SPEC #: [id number] PATIENT: LEDY VICTORIA #[id number] (Continued) COMMENT: The slides show mostly blood. There are minute fragments of columnar and glandular epithelum that is suggestive of contaminants. No evidence of pancreatic epithelium. No evidence of malignancy. Signed SIGNATURE ON FILE [place] 05/23/18 122 END OF REPORT POCT-GLUCOSE METER 2016-10-12 17:45:00 POC-GLUCOSE METER (BEAKER) (test ngug=8843) 131 mg/dL 70-110 TESTED AT [facility] [address] [place] [address] CYCLOSPORINE [id number] 12:09:00* Test Item Value Reference Range Comments CYCLOSPORINE BLOOD (BEAKER) (test geev=122) 166 ng/mL <400 POCT-GLUCOSE [id number] 12:05:00* Test Item Value Reference Range Comments POC-GLUCOSE METER (BEAKER) (test mwsb=9897) 155 mg/dL 70-110 TESTED AT [address] [address] PROTEIN, RANDOM [id number] 06:44:00* Test Item Value Reference Range Comments PROTEIN, URINE (BEAKER) (test yjko=1145) 67 mg/dL 0-14 CREATININE, RANDOM [id number] 06:44:00* Test Item Value Reference Range Comments CREATININE URINE (BEAKER) (test ceod=863) 76.1 mg/dL Reference Range: No NormalsBASIC METABOLIC [id number] 06:28:00* Test Item Value Reference Range Comments SODIUM (BEAKER) (test yepr=333) 140 meq/L 135-148 POTASSIUM (BEAKER) (test jtqw=151) 3.9 meq/L 3.6-5.5 CHLORIDE (BEAKER) (test scep=693) 105 meq/L 98-106 CO2 (BEAKER) (test qusq=463) 27 meq/L 20-29 BLOOD UREA NITROGEN (BEAKER) (test sujc=786) 35 mg/dL 10-26 CREATININE (BEAKER) (test fgfj=390) 1.20 mg/dL 0.50-1.20 GLUCOSE RANDOM (BEAKER) (test gbws=104) 145 mg/dL 70-110 CALCIUM (BEAKER) (test sumf=409) 7.6 mg/dL 8.5-10.5 EGFR (BEAKER) (test nsir=7029) 62 mL/min/1.73 sq m ESTIMATED GFR IS NOT ACCURATE CREATININE CLEARANCE IN PREDICTING GLOMERULAR FILTRATION RATE. ESTIMATED GFR IS NOT APPLICABLE FOR DIALYSIS PATIENTS. POCT-GLUCOSE [id number] 21:59:00* Test Item Value Reference Range Comments POC-GLUCOSE METER (BEAKER) (test ityh=0272) 150 mg/dL 70-110 TESTED AT [address] [address] POCT-GLUCOSE [id number] 16:42:00* Test Item Value Reference Range Comments POC-GLUCOSE METER (BEAKER) (test gnmv=3192) 231 mg/dL 70-110 TESTED AT [address] [address] POCT-GLUCOSE [id number] 12:29:00* Test Item Value Reference Range Comments POC-GLUCOSE METER (BEAKER) (test tdus=9884) 143 mg/dL 70-110 TESTED AT [address] [address] PROTEIN, RANDOM [id number] 10:18:00* Test Item Value Reference Range Comments PROTEIN, URINE (BEAKER) (test udhn=3814) 9 mg/dL 0-14 CREATININE, RANDOM [id number] 10:17:00* Test Item Value Reference Range Comments CREATININE URINE (BEAKER) (test vzpl=107) 11.8 mg/dL Reference Range: No NormalsPOCT-GLUCOSE [id number] 08:51:00* Test Item Value Reference Range Comments POC-GLUCOSE METER (BEAKER) (test iary=8566) 133 mg/dL 70-110 TESTED AT [address] [address] POCT-GLUCOSE [id number] 20:42:00* Test Item Value Reference Range Comments POC-GLUCOSE METER (BEAKER) (test hvbj=1171) 169 mg/dL 70-110 TESTED AT [address] [address] POCT-GLUCOSE [id number] 15:47:00* Test Item Value Reference Range Comments POC-GLUCOSE METER (BEAKER) (test odvc=2779) 231 mg/dL 70-110 TESTED AT [address] [address] CYCLOSPORINE [id number] 13:48:00* Test Item Value Reference Range Comments CYCLOSPORINE BLOOD (BEAKER) (test ghii=641) 188 ng/mL <400 PROTEIN, RANDOM [id number] 09:40:00* Test Item Value Reference Range Comments PROTEIN, URINE (BEAKER) (test hpja=3373) 238 mg/dL 0-14 POCT-GLUCOSE [id number] 08:35:00* Test Item Value Reference Range Comments POC-GLUCOSE METER (BEAKER) (test cxdy=9293) 132 mg/dL 70-110 TESTED AT [facility] [address] [facility] [address] CREATININE, RANDOM [id number] 08:32:00* Test Item Value Reference Range Comments CREATININE URINE (BEAKER) (test yeso=936) 105.0 mg/dL Reference Range: No NormalsCBC W/PLT COUNT & AUTO [id number] 07:00:00* Test Item Value Reference Range Comments WHITE BLOOD CELL COUNT (BEAKER) (test kwhe=312) 9.2 K/ L 4.0-10.0 RED BLOOD CELL COUNT (BEAKER) (test btmc=056) 4.64 M/ L 4.20-5.80 HEMOGLOBIN (BEAKER) (test yarb=191) 14.4 GM/DL 13.0-16.8 HEMATOCRIT (BEAKER) (test ssnp=365) 42.7 % 40.0-50.0 MEAN CORPUSCULAR VOLUME (BEAKER) (test czes=185) 92.0 fL 82.0-98.0 MEAN CORPUSCULAR HEMOGLOBIN (BEAKER) (test muav=732) 31.0 pg 27.0-33.0 MEAN CORPUSCULAR HEMOGLOBIN CONC (BEAKER) (test yqqf=317) 33.7 GM/DL 32.0-36.0 RED CELL DISTRIBUTION WIDTH (BEAKER) (test zoav=948) 14.2 % 10.3-14.2 PLATELET COUNT (BEAKER) (test gljj=785) 126 K/CU MM 150-430 MEAN PLATELET VOLUME (BEAKER) (test lpaz=377) 9.9 fL 6.5-10.5 NUCLEATED RED BLOOD CELLS (BEAKER) (test ircp=043) 0 /100 WBC 0-0 NEUTROPHILS RELATIVE PERCENT (BEAKER) (test zipr=703) 92 % LYMPHOCYTES RELATIVE PERCENT (BEAKER) (test tmhl=370) 4 % MONOCYTES RELATIVE PERCENT (BEAKER) (test iwrj=507) 4 % EOSINOPHILS RELATIVE PERCENT (BEAKER) (test zdmv=500) 0 % BASOPHILS RELATIVE PERCENT (BEAKER) (test zxbx=506) 0 % NEUTROPHILS ABSOLUTE COUNT (BEAKER) (test htds=822) 8.50 K/ L 1.80-8.00 LYMPHOCYTES ABSOLUTE COUNT (BEAKER) (test iogm=165) 0.30 K/ L 1.48-4.50 MONOCYTES ABSOLUTE COUNT (BEAKER) (test dypk=102) 0.40 K/ L 0.00-1.30 EOSINOPHILS ABSOLUTE COUNT (BEAKER) (test sdoh=976) 0.00 K/ L 0.00-0.50 BASOPHILS ABSOLUTE COUNT (BEAKER) (test wnwr=095) 0.00 K/ L 0.00-0.20 COMPREHENSIVE METABOLIC [id number] 05:51:00* Test Item Value Reference Range Comments TOTAL PROTEIN (BEAKER) (test pxkq=743) 4.5 gm/dL 6.0-8.5 ALBUMIN (BEAKER) (test ylkt=1407) 1.9 g/dL 3.5-5.0 ALKALINE PHOSPHATASE (BEAKER) (test vnfy=010) 102 U/L 30-115 BILIRUBIN TOTAL (BEAKER) (test voah=771) 0.3 mg/dL 0.1-1.2 SODIUM (BEAKER) (test jows=935) 140 meq/L 135-148 POTASSIUM (BEAKER) (test ddxv=585) 4.1 meq/L 3.6-5.5 CHLORIDE (BEAKER) (test hlhz=376) 107 meq/L 98-106 CO2 (BEAKER) (test umwc=836) 24 meq/L 20-29 BLOOD UREA NITROGEN (BEAKER) (test chih=563) 34 mg/dL 10-26 CREATININE (BEAKER) (test kkrf=467) 1.40 mg/dL 0.50-1.20 GLUCOSE RANDOM (BEAKER) (test vxoq=596) 133 mg/dL 70-110 CALCIUM (BEAKER) (test pnoq=507) 7.7 mg/dL 8.5-10.5 AST (SGOT) (BEAKER) (test vruz=663) 47 U/L 5-40 ALT (SGPT) (BEAKER) (test xkof=620) 60 U/L 5-50 EGFR (BEAKER) (test egzl=8058) 52 mL/min/1.73 sq m ESTIMATED GFR IS NOT ACCURATE CREATININE CLEARANCE IN PREDICTING GLOMERULAR FILTRATION RATE. ESTIMATED GFR IS NOT APPLICABLE FOR DIALYSIS PATIENTS. BASIC METABOLIC [id number] 07:17:00* Test Item Value Reference Range Comments SODIUM (BEAKER) (test tgtf=957) 141 meq/L 135-148 POTASSIUM (BEAKER) (test dnke=748) 4.2 meq/L 3.6-5.5 CHLORIDE (BEAKER) (test afgt=749) 107 meq/L 98-106 CO2 (BEAKER) (test ielp=767) 26 meq/L 20-29 BLOOD UREA NITROGEN (BEAKER) (test sckb=703) 36 mg/dL 10-26 CREATININE (BEAKER) (test hxly=423) 1.40 mg/dL 0.50-1.20 GLUCOSE RANDOM (BEAKER) (test mqaf=671) 131 mg/dL 70-110 CALCIUM (BEAKER) (test kbgb=252) 7.8 mg/dL 8.5-10.5 EGFR (BEAKER) (test agip=3541) 52 mL/min/1.73 sq m ESTIMATED GFR IS NOT ACCURATE CREATININE CLEARANCE IN PREDICTING GLOMERULAR FILTRATION RATE. ESTIMATED GFR IS NOT APPLICABLE FOR DIALYSIS PATIENTS. BASIC METABOLIC [id number] 21:24:00* Test Item Value Reference Range Comments SODIUM (BEAKER) (test hzwx=621) 139 meq/L 135-148 POTASSIUM (BEAKER) (test tssr=635) 4.2 meq/L 3.6-5.5 CHLORIDE (BEAKER) (test pbpo=618) 104 meq/L 98-106 CO2 (BEAKER) (test nqxc=447) 25 meq/L 20-29 BLOOD UREA NITROGEN (BEAKER) (test owwn=000) 38 mg/dL 10-26 CREATININE (BEAKER) (test sqbk=817) 1.60 mg/dL 0.50-1.20 GLUCOSE RANDOM (BEAKER) (test nrcc=724) 142 mg/dL 70-110 CALCIUM (BEAKER) (test hngb=789) 7.7 mg/dL 8.5-10.5 EGFR (BEAKER) (test agtu=2652) 44 mL/min/1.73 sq m ESTIMATED GFR IS NOT ACCURATE CREATININE CLEARANCE IN PREDICTING GLOMERULAR FILTRATION RATE. ESTIMATED GFR IS NOT APPLICABLE FOR DIALYSIS PATIENTS. CYCLOSPORINE [id number] 13:33:00* Test Item Value Reference Range Comments CYCLOSPORINE BLOOD (BEAKER) (test tfcs=214) 83 ng/mL <400 CBC W/PLT COUNT & AUTO [id number] 07:39:00* Test Item Value Reference Range Comments WHITE BLOOD CELL COUNT (BEAKER) (test qmfr=080) 10.2 K/ L 4.0-10.0 RED BLOOD CELL COUNT (BEAKER) (test jnpn=319) 4.42 M/ L 4.20-5.80 HEMOGLOBIN (BEAKER) (test rymv=586) 13.8 GM/DL 13.0-16.8 HEMATOCRIT (BEAKER) (test opau=286) 41.0 % 40.0-50.0 MEAN CORPUSCULAR VOLUME (BEAKER) (test fjvh=295) 92.7 fL 82.0-98.0 MEAN CORPUSCULAR HEMOGLOBIN (BEAKER) (test xqfj=224) 31.1 pg 27.0-33.0 MEAN CORPUSCULAR HEMOGLOBIN CONC (BEAKER) (test acmj=262) 33.6 GM/DL 32.0-36.0 RED CELL DISTRIBUTION WIDTH (BEAKER) (test ziqz=249) 14.3 % 10.3-14.2 PLATELET COUNT (BEAKER) (test tbpz=791) 132 K/CU MM 150-430 MEAN PLATELET VOLUME (BEAKER) (test cbkp=133) 10.3 fL 6.5-10.5 NUCLEATED RED BLOOD CELLS (BEAKER) (test vgur=903) 0 /100 WBC 0-0 NEUTROPHILS RELATIVE PERCENT (BEAKER) (test udrn=127) 92 % LYMPHOCYTES RELATIVE PERCENT (BEAKER) (test shvj=760) 4 % MONOCYTES RELATIVE PERCENT (BEAKER) (test lxvn=313) 4 % EOSINOPHILS RELATIVE PERCENT (BEAKER) (test fzks=732) 0 % BASOPHILS RELATIVE PERCENT (BEAKER) (test wmkr=895) 0 % NEUTROPHILS ABSOLUTE COUNT (BEAKER) (test fmcc=085) 9.30 K/ L 1.80-8.00 LYMPHOCYTES ABSOLUTE COUNT (BEAKER) (test zsje=404) 0.40 K/ L 1.48-4.50 MONOCYTES ABSOLUTE COUNT (BEAKER) (test wxnt=206) 0.50 K/ L 0.00-1.30 EOSINOPHILS ABSOLUTE COUNT (BEAKER) (test auzl=302) 0.00 K/ L 0.00-0.50 BASOPHILS ABSOLUTE COUNT (BEAKER) (test dkjg=022) 0.00 K/ L 0.00-0.20 COMPREHENSIVE METABOLIC [id number] 07:07:00* Test Item Value Reference Range Comments TOTAL PROTEIN (BEAKER) (test mtnr=464) 4.5 gm/dL 6.0-8.5 ALBUMIN (BEAKER) (test wuwo=4063) 1.8 g/dL 3.5-5.0 ALKALINE PHOSPHATASE (BEAKER) (test nomq=525) 96 U/L 30-115 BILIRUBIN TOTAL (BEAKER) (test obph=749) < mg/dL 0.1-1.2 SODIUM (BEAKER) (test qkxc=647) 138 meq/L 135-148 POTASSIUM (BEAKER) (test ebjx=341) 4.3 meq/L 3.6-5.5 CHLORIDE (BEAKER) (test qbnj=048) 104 meq/L 98-106 CO2 (BEAKER) (test zhda=089) 24 meq/L 20-29 BLOOD UREA NITROGEN (BEAKER) (test lfet=472) 41 mg/dL 10-26 CREATININE (BEAKER) (test whor=087) 1.70 mg/dL 0.50-1.20 GLUCOSE RANDOM (BEAKER) (test ebut=309) 141 mg/dL 70-110 CALCIUM (BEAKER) (test ttab=981) 7.9 mg/dL 8.5-10.5 AST (SGOT) (BEAKER) (test ffpw=677) 19 U/L 5-40 ALT (SGPT) (BEAKER) (test ascx=429) 23 U/L 5-50 EGFR (BEAKER) (test affs=7518) 41 mL/min/1.73 sq m ESTIMATED GFR IS NOT ACCURATE CREATININE CLEARANCE IN PREDICTING GLOMERULAR FILTRATION RATE. ESTIMATED GFR IS NOT APPLICABLE FOR DIALYSIS PATIENTS. PROTEIN, RANDOM [id number] 16:08:00* Test Item Value Reference Range Comments PROTEIN, URINE (BEAKER) (test qrjg=4130) 193 mg/dL 0-14 CREATININE, RANDOM [id number] 16:08:00* Test Item Value Reference Range Comments CREATININE URINE (BEAKER) (test epun=774) 38.1 mg/dL Reference Range: No NormalsBASIC METABOLIC [id number] 05:21:00* Test Item Value Reference Range Comments SODIUM (BEAKER) (test ohtm=653) 138 meq/L 135-148 POTASSIUM (BEAKER) (test dzjk=000) 4.8 meq/L 3.6-5.5 CHLORIDE (BEAKER) (test kelw=036) 102 meq/L 98-106 CO2 (BEAKER) (test xfxt=564) 23 meq/L 20-29 BLOOD UREA NITROGEN (BEAKER) (test uxoz=131) 41 mg/dL 10-26 CREATININE (BEAKER) (test zmcz=020) 2.00 mg/dL 0.50-1.20 GLUCOSE RANDOM (BEAKER) (test vxfb=842) 111 mg/dL 70-110 CALCIUM (BEAKER) (test fmhh=800) 8.0 mg/dL 8.5-10.5 EGFR (BEAKER) (test jrcn=3529) 34 mL/min/1.73 sq m ESTIMATED GFR IS NOT ACCURATE CREATININE CLEARANCE IN PREDICTING GLOMERULAR FILTRATION RATE. ESTIMATED GFR IS NOT APPLICABLE FOR DIALYSIS PATIENTS. CBC W/PLT COUNT & AUTO [id number] 05:14:00* Test Item Value Reference Range Comments WHITE BLOOD CELL COUNT (BEAKER) (test zmix=120) 12.3 K/ L 4.0-10.0 RED BLOOD CELL COUNT (BEAKER) (test taob=734) 4.62 M/ L 4.20-5.80 HEMOGLOBIN (BEAKER) (test zjxm=049) 14.3 GM/DL 13.0-16.8 HEMATOCRIT (BEAKER) (test nrva=196) 42.7 % 40.0-50.0 MEAN CORPUSCULAR VOLUME (BEAKER) (test cfxy=510) 92.3 fL 82.0-98.0 MEAN CORPUSCULAR HEMOGLOBIN (BEAKER) (test pzeq=393) 30.9 pg 27.0-33.0 MEAN CORPUSCULAR HEMOGLOBIN CONC (BEAKER) (test dcyt=233) 33.5 GM/DL 32.0-36.0 RED CELL DISTRIBUTION WIDTH (BEAKER) (test lekn=986) 14.6 % 10.3-14.2 PLATELET COUNT (BEAKER) (test ajwr=109) 142 K/CU MM 150-430 MEAN PLATELET VOLUME (BEAKER) (test qmjx=704) 10.3 fL 6.5-10.5 NUCLEATED RED BLOOD CELLS (BEAKER) (test nsap=212) 0 /100 WBC 0-0 NEUTROPHILS RELATIVE PERCENT (BEAKER) (test jzxe=625) 88 % LYMPHOCYTES RELATIVE PERCENT (BEAKER) (test ycrg=988) 5 % MONOCYTES RELATIVE PERCENT (BEAKER) (test oqca=280) 5 % EOSINOPHILS RELATIVE PERCENT (BEAKER) (test ooan=663) 0 % BASOPHILS RELATIVE PERCENT (BEAKER) (test ifsi=262) 2 % NEUTROPHILS ABSOLUTE COUNT (BEAKER) (test bxhw=087) 10.90 K/ L 1.80-8.00 LYMPHOCYTES ABSOLUTE COUNT (BEAKER) (test zabh=645) 0.60 K/ L 1.48-4.50 MONOCYTES ABSOLUTE COUNT (BEAKER) (test regb=362) 0.60 K/ L 0.00-1.30 EOSINOPHILS ABSOLUTE COUNT (BEAKER) (test rtpi=810) 0.00 K/ L 0.00-0.50 BASOPHILS ABSOLUTE COUNT (BEAKER) (test tbby=219) 0.30 K/ L 0.00-0.20 PROTEIN, 24 HOUR [id number] 23:57:00* Test Item Value Reference Range Comments PROTEIN, 24HR URINE (BEAKER) (test tkig=9122) 7161 mg/24hr 0-300 VOLUME, TOTAL (BEAKER) (test cdud=1750) 700 ml PROTEIN, URINE (BEAKER) (test iits=8480) 1023 mg/dL 0-14 VITAMIN D, [id number] 16:38:00* Test Item Value Reference Range Comments VITAMIN D 25-OH (BEAKER) (test soon=7348) < ng/mL 13.0-47.8 VITAMIN B12 AND [id number] 16:35:00* Test Item Value Reference Range Comments VITAMIN B12 (BEAKER) (test ewne=587) 324 pg/mL 213-816 FOLATE (BEAKER) (test nksb=469) 7.7 ng/mL >=7.0 Effective 06/10/2014: Folate Reference Range ChangeNew: >=7.0 Previous: >=5.4 POCT-GLUCOSE [id number] 15:01:00* Test Item Value Reference Range Comments POC-GLUCOSE METER (BEAKER) (test xvbg=6036) 244 mg/dL 70-110 TESTED AT [facility] [address] [facility] [address] CBC W/PLT COUNT & AUTO [id number] 07:01:00* Test Item Value Reference Range Comments WHITE BLOOD CELL COUNT (BEAKER) (test cfbu=301) 5.1 K/ L 4.0-10.0 RED BLOOD CELL COUNT (BEAKER) (test yvdb=387) 4.55 M/ L 4.20-5.80 HEMOGLOBIN (BEAKER) (test ebid=756) 14.0 GM/DL 13.0-16.8 HEMATOCRIT (BEAKER) (test ogel=828) 41.7 % 40.0-50.0 MEAN CORPUSCULAR VOLUME (BEAKER) (test lrxs=020) 91.6 fL 82.0-98.0 MEAN CORPUSCULAR HEMOGLOBIN (BEAKER) (test ommr=257) 30.8 pg 27.0-33.0 MEAN CORPUSCULAR HEMOGLOBIN CONC (BEAKER) (test nmyi=912) 33.6 GM/DL 32.0-36.0 RED CELL DISTRIBUTION WIDTH (BEAKER) (test fnmd=231) 14.6 % 10.3-14.2 PLATELET COUNT (BEAKER) (test yjrh=412) 150 K/CU MM 150-430 MEAN PLATELET VOLUME (BEAKER) (test giii=938) 10.3 fL 6.5-10.5 NUCLEATED RED BLOOD CELLS (BEAKER) (test ahxx=383) 0 /100 WBC 0-0 (MANUAL DIFFERENTIAL)2016-10-06 07:01:00* Test Item Value Reference Range Comments NEUTROPHILS - REL (DIFF) (BEAKER) (test iaip=5179) 91 % LYMPHOCYTES - REL (DIFF) (BEAKER) (test ixzq=4593) 7 % BANDS - REL (DIFF) (BEAKER) (test qhyc=2274) 2 % 0-10 NEUTROPHILS - ABS (DIFF) (BEAKER) (test wzys=3706) 4.64 K/ L 1.80-8.00 LYMPHOCYTES - ABS (DIFF) (BEAKER) (test vygp=7454) 0.36 K/ L 1.48-4.50 BANDS-ABS (DIFF) (BEAKER) (test wopd=9088) 0.1 K/ L 0.0-0.8 TOTAL COUNTED (BEAKER) (test qxyj=5436) 100 BANDS + SEGMENTED NEUTROPHILS (BEAKER) (test vzap=9979) 4.74 WBC MORPHOLOGY (BEAKER) (test zdkv=097) Normal PLT MORPHOLOGY (BEAKER) (test wpgk=136) Normal RBC MORPHOLOGY (BEAKER) (test zdqm=472) Normal TSH/FREE T4 IF [id number] 06:51:00* Test Item Value Reference Range Comments THYROID STIMULATING HORMONE (BEAKER) (test oygi=838) 1.03 uIU/mL 0.35-5.50 COMPREHENSIVE METABOLIC [id number] 06:28:00* Test Item Value Reference Range Comments TOTAL PROTEIN (BEAKER) (test hdaz=223) 5.0 gm/dL 6.0-8.5 ALBUMIN (BEAKER) (test dpev=2262) 1.9 g/dL 3.5-5.0 ALKALINE PHOSPHATASE (BEAKER) (test rkgy=761) 120 U/L 30-115 BILIRUBIN TOTAL (BEAKER) (test pgvh=964) 0.4 mg/dL 0.1-1.2 SODIUM (BEAKER) (test kyna=908) 137 meq/L 135-148 POTASSIUM (BEAKER) (test uuyo=371) 4.2 meq/L 3.6-5.5 CHLORIDE (BEAKER) (test uhvv=331) 104 meq/L 98-106 CO2 (BEAKER) (test npza=388) 25 meq/L 20-29 BLOOD UREA NITROGEN (BEAKER) (test jhyc=992) 28 mg/dL 10-26 CREATININE (BEAKER) (test lzem=646) 1.60 mg/dL 0.50-1.20 GLUCOSE RANDOM (BEAKER) (test orkg=964) 159 mg/dL 70-110 CALCIUM (BEAKER) (test rwjc=323) 7.6 mg/dL 8.5-10.5 AST (SGOT) (BEAKER) (test kdqo=207) 26 U/L 5-40 ALT (SGPT) (BEAKER) (test clmw=589) 25 U/L 5-50 EGFR (BEAKER) (test qtwu=5878) 44 mL/min/1.73 sq m ESTIMATED GFR IS NOT ACCURATE CREATININE CLEARANCE IN PREDICTING GLOMERULAR FILTRATION RATE. ESTIMATED GFR IS NOT APPLICABLE FOR DIALYSIS PATIENTS. POCT-GLUCOSE [id number] 05:34:00* Test Item Value Reference Range Comments POC-GLUCOSE METER (BEAKER) (test ndvy=3889) 158 mg/dL 70-110 TESTED AT [facility] [address] [facility] [id number] POCT-GLUCOSE [id number] 23:43:00* Test Item Value Reference Range Comments POC-GLUCOSE METER (BEAKER) (test kiza=5725) 103 mg/dL 70-110 TESTED AT [facility] [address] [facility] [id number] PROTEIN, RANDOM [id number] 22:46:00* Test Item Value Reference Range Comments PROTEIN, URINE (BEAKER) (test aexv=2267) 979 mg/dL 0-14 CREATININE, RANDOM [id number] 21:56:00* Test Item Value Reference Range Comments CREATININE URINE (BEAKER) (test yjua=293) 173.3 mg/dL Reference Range: No NormalsBASIC METABOLIC [id number] 19:54:00* Test Item Value Reference Range Comments SODIUM (BEAKER) (test rzug=476) 141 meq/L 135-148 POTASSIUM (BEAKER) (test hswb=078) 4.0 meq/L 3.6-5.5 Specimen moderately hemolyzed CHLORIDE (BEAKER) (test npcj=298) 119 meq/L 98-106 CO2 (BEAKER) (test mqia=116) 18 meq/L 20-29 BLOOD UREA NITROGEN (BEAKER) (test wdpa=495) 18 mg/dL 10-26 CREATININE (BEAKER) (test eraj=034) 0.90 mg/dL 0.50-1.20 Specimen moderately hemolyzed GLUCOSE RANDOM (BEAKER) (test oeri=212) 66 mg/dL 70-110 CALCIUM (BEAKER) (test csui=456) 5.0 mg/dL 8.5-10.5 EGFR (BEAKER) (test ekar=9639) 86 mL/min/1.73 sq m ESTIMATED GFR IS NOT ACCURATE CREATININE CLEARANCE IN PREDICTING GLOMERULAR FILTRATION RATE. ESTIMATED GFR IS NOT APPLICABLE FOR DIALYSIS PATIENTS. HEMOGLOBIN [id number] 19:29:00* Test Item Value Reference Range Comments HEMOGLOBIN A1C (BEAKER) (test ujip=206) 5.5 % 4.3-6.1 TSH/FREE T4 IF [id number] 19:27:00* Test Item Value Reference Range Comments THYROID STIMULATING HORMONE (BEAKER) (test qoho=950) 2.32 uIU/mL 0.35-5.50 CBC W/PLT COUNT & AUTO [id number] 18:50:00* Test Item Value Reference Range Comments WHITE BLOOD CELL COUNT (BEAKER) (test krhf=839) 6.6 K/ L 4.0-10.0 RED BLOOD CELL COUNT (BEAKER) (test eoie=804) 4.70 M/ L 4.20-5.80 HEMOGLOBIN (BEAKER) (test cigb=236) 14.4 GM/DL 13.0-16.8 HEMATOCRIT (BEAKER) (test trvz=603) 43.0 % 40.0-50.0 MEAN CORPUSCULAR VOLUME (BEAKER) (test rmzx=832) 91.3 fL 82.0-98.0 MEAN CORPUSCULAR HEMOGLOBIN (BEAKER) (test mhff=129) 30.7 pg 27.0-33.0 MEAN CORPUSCULAR HEMOGLOBIN CONC (BEAKER) (test jrzm=823) 33.6 GM/DL 32.0-36.0 RED CELL DISTRIBUTION WIDTH (BEAKER) (test avnb=717) 14.6 % 10.3-14.2 PLATELET COUNT (BEAKER) (test aoqi=173) 170 K/CU MM 150-430 MEAN PLATELET VOLUME (BEAKER) (test fsnn=172) 10.0 fL 6.5-10.5 NUCLEATED RED BLOOD CELLS (BEAKER) (test iofu=231) 0 /100 WBC 0-0 NEUTROPHILS RELATIVE PERCENT (BEAKER) (test amtr=151) 69 % LYMPHOCYTES RELATIVE PERCENT (BEAKER) (test xdex=160) 21 % MONOCYTES RELATIVE PERCENT (BEAKER) (test alkh=558) 9 % EOSINOPHILS RELATIVE PERCENT (BEAKER) (test zqoj=252) 1 % BASOPHILS RELATIVE PERCENT (BEAKER) (test fmxp=067) 0 % NEUTROPHILS ABSOLUTE COUNT (BEAKER) (test jyko=945) 4.50 K/ L 1.80-8.00 LYMPHOCYTES ABSOLUTE COUNT (BEAKER) (test acvv=744) 1.40 K/ L 1.48-4.50 MONOCYTES ABSOLUTE COUNT (BEAKER) (test fopg=245) 0.60 K/ L 0.00-1.30 EOSINOPHILS ABSOLUTE COUNT (BEAKER) (test bwxk=768) 0.10 K/ L 0.00-0.50 BASOPHILS ABSOLUTE COUNT (BEAKER) (test egne=165) 0.00 K/ L 0.00-0.20
[2019-02-28 07:55] VITALS: BP 131/98
== END | disposition home or self-care (01) ==
LOC: OR 05:12
PROVIDERS: ATTEND Physical Medicine & Rehabilitation Pain Medicine
DX: G58.0 Intercostal neuropathy (principal); Z88.0 Allergy status to penicillin; N18.9 Chronic kidney disease, unspecified; M81.0 Age-related osteoporosis without current pathological fracture; G47.30 Sleep apnea, unspecified; K86.1 Other chronic pancreatitis; Z01.810 Encounter for preprocedural cardiovascular examination; Z01.812 Encounter for preprocedural laboratory examination
CPT/HCPCS: 36415; 64620 ×4; 77003; 80048; 85025; 85610; 85730; 93005; J2001; J2250; J2704; J3010; Q9967; 76000

== ENCOUNTER → 2019-05-23 | Day surgery (SDC) | payer BC ==
[~2019-05-23] MED LIST changes: +ETHYL ALCOHOL IV ONE; +LIDOCAINE HCL 2% LOCAL INJ 5 ML SDV VIAL INJ ONE; +MARINOL2.5 MG PO; +ULTRAM 50MG50 MG PO
[2019-05-23 09:55] VITALS: BP 154/98
--- NOTE | 2019-05-23 10:33 | Diagnostic Imaging Report ---
EXAMINATION: CHEST SINGLE (PORTABLE) INDICATION: Postoperative COMPARISON: None FINDINGS: LINES/TUBES:None LUNGS:The lungs are moderately inflated. No focal consolidation or pulmonary edema. PLEURA:No pleural effusion or pneumothorax. MEDIASTINUM:The cardiomediastinal silhouette appears normal in size and shape. BONES/SOFT TISSUES:No acute osseous injury. Partially visualized thoracolumbar fusion hardware. Partially visualized sclerotic lesion in the proximal left humerus with chondroid matrix. ABDOMEN:No free air under the diaphragm. IMPRESSION: No focal pneumonia or pulmonary edema. No pneumothorax. Partially visualized lumbar spinal fusion hardware. Partially visualized sclerotic lesion in the proximal left humerus with chondroid matrix. Signed by: Mary Dominguez MD on 05/23/2019 10:30 AM
== END | disposition home or self-care (01) ==
LOC: OR 07:27
PROVIDERS: ATTEND Physical Medicine & Rehabilitation Pain Medicine
DX: G58.0 Intercostal neuropathy (principal); G89.29 Other chronic pain; M54.2 Cervicalgia; J45.909 Unspecified asthma, uncomplicated; E03.9 Hypothyroidism, unspecified; K86.1 Other chronic pancreatitis; B19.10 Unspecified viral hepatitis B without hepatic coma; B02.29 Other postherpetic nervous system involvement; Z98.1 Arthrodesis status; M81.0 Age-related osteoporosis without current pathological fracture; G47.30 Sleep apnea, unspecified; Z88.0 Allergy status to penicillin; Z88.6 Allergy status to analgesic agent; Z91.048 Other nonmedicinal substance allergy status
CPT/HCPCS: 64620; 71045; J2001 ×2; J2250; J2704; J3010; Q9967; 77002